=== PATIENT | female | born 1990 | race Caucasian/White ===

== ENCOUNTER 2020-06-13 10:21 | Emergency (ER) | payer OTHER, SELFPAY ==
--- NOTE | ~2020-06-13 | XR_ITS ---
EXAMINATION: XR CHEST CLINICAL INFORMATION: Fever COMPARISON: None TECHNIQUE: Frontal view of the chest was obtained. FINDINGS: No significant abnormality is noted involving the heart, lungs, mediastinum, bony thorax or soft tissues. XR/XR chest 1V IMPRESSION: Unremarkable examination.
[2020-06-13 10:35] VITALS: BP 140/63; PULSE 177; RESP 18; TEMP 38.4; O2SAT 100; BMI 17.1
[2020-06-13] MEDS: 0.9 % Sodium Chloride 1,000 ML 999 ML IV ×2 (11:12→13:03)
[2020-06-13] MEDS: Acetaminophen 325 MG TABLET 975 MG PO (11:12)
[2020-06-13 11:15] LABS: Basophils Percent Auto 0.3 % (0-2); Eosinophils Percent Auto 0.3 % (0-4); Hematocrit 36.3 % (37-47); Hemoglobin 11.4 g/dl (12.0-16.0); Imm Gran Abs Auto 0.01 X10*3/uL (0.00-0.03); Imm Gran Pct Auto 0.3 % (0.0-0.4); Lymphocytes Absolute Auto 0.2 X10*3/uL (1.2-4.9); Lymphocytes Percent Auto 4.5 % (20-40); MANUAL DIFF FLAG SCAN; Mean Corpuscular HGB Conc 31.4 g/dl (31.0-35.0); Mean Corpuscular Hemoglobin 27.5 pg (27.0-33.0); Mean Corpuscular Volume 87.7 fL (80-98); Mean Platelet Volume 10.9 fL (9.4-12.3); Monocytes Percent Auto 0.6 % (2-11); Neutrophils Absolute Auto 3.3 X10*3/uL (2.0-8.3); Platelet Count 164 X10*3/uL (160-400); Red Blood Count 4.14 X10*6/uL (4.20-5.50); Red Cell Distribution Width 12.8 % (11.0-16.0); SCAN SMEAR FLAG 1; White Blood Count 3.5 X10*3/uL (4.8-10.8)
[2020-06-13 11:34] LABS: SLIDE REVIEW VERIFIED
[2020-06-13 11:52] LABS: Influenza A PCR NEGATIVE (Negative); Influenza B PCR NEGATIVE (Negative); Resp Syncy Virus RNA Qual PCR NEGATIVE (Negative); SARS COV2 PCR INHOUSE NEGATIVE (Negative)
[2020-06-13 12:22] VITALS: BP 81/39; PULSE 124; RESP 18; TEMP 38.3; O2SAT 98
[2020-06-13 14:30] VITALS: BP 95/51; PULSE 115; RESP 16; TEMP 37.1; O2SAT 100
[2020-06-13 15:05] LABS: Glucose Urine UA NEG (NEG); Leukocyte Esterase Urine NEG (NEG); Nitrite Urine POS (NEG); PH 5.5 (5.0-8.0); UACC Culture Trigger YES; Urine Blood 2+ (NEG); Urine Ketones 15 MG/DL (NEG); Urine Protein NEG (NEG-TRACE)
[2020-06-13 15:06] LABS: Appearance Urine CLOUDY; Color Urine YELLOW
[2020-06-13 15:07] LABS: UPreg QC Valid YES; Urine Pregnancy NEGATIVE (NEGATIVE)
[2020-06-13 15:14] LABS: Bacteria Urine 3+ /LPF; Mucus Urine 1+ /LPF; Squamous Epithelial Cell Urine 1+ /LPF; UACC CULT YES
[2020-06-13 15:20] LABS: Alanine Aminotransferase 17 U/L (0-31); Albumin Level 3.3 g/dL (3.5-5.0); Alkaline Phosphatase 48 U/L (39-117); Anion Gap 9 (12-20); Aspartate Amino Transferase 22 U/L (5-31); Bilirubin Total 1.3 mg/dL (0.0-1.0); Blood Urea Nitrogen 11 mg/dL (9-16); Calcium 7.6 mg/dL (8.4-10.2); Carbon Dioxide 21 mmol/L (22-29); Chloride 111 mmol/L (96-108); Creatinine Clr Calc Pharmacy 97.3; Estimated Glomerular Filt Rate > 60; Glucose Random 140 mg/dL (60-115); Potassium 3.4 mmol/L (3.3-5.1); Sodium 138 mmol/L (135-145); Total Protein 5.7 g/dL (6.5-8.0)
--- NOTE | 2020-06-13 15:50 | ED_ITS ---
HPI - General Adult General Chief complaint: Fever Stated complaint: covid symptoms Time Seen by Provider: 06/13/20 10:45 Source: patient Mode of arrival: ambulatory Limitations: language barrier (Patient primarily English speaking spanish interpreter present for all interactions) History of Present Illness HPI narrative: This is otherwise healthy 29-year-old female presenting with complaint of states since yesterday has had a feeling of flu-like symptoms with runny nose/congestion and body aches this morning woke up with a fever and generalized feeling of unwell with myalgia type pains allover and her back as well. She denies any recent travel or sick contact. She denies any concern for . Denies any other GI symptoms. Onset (ago): day(s) (2) Severity: moderate Associated symptoms: fever/chills Related Data Previous Rx's Medication Instructions Recorded cefdinir 300 mg PO Q12H 7 Days #14 cap 06/13/20 ibuprofen 800 mg PO Q8H PRN #14 tab 06/13/20 Allergies Allergy/AdvReac Type Severity Reaction Status Date / Time Penicillins [PCN] Allergy Unknown UNKNOWN Unverified 01/14/20 19:33 Review of Systems Review of Systems: Constitutional: No Weight loss, No Fever, No Chills, No Night Sweats, No Fatigue, No Malaise ENT/Mouth: No Hearing loss, No Ear Pain, No Nasal Congestion, No Sinus Pain, No Hoarseness, No sore throat, No Rhinorrhea, No Swallowing Difficulty Eyes: No Eye Pain, No Swelling, No Redness, No Foreign Body, No Discharge Cardiovascular: No Chest Pain, No SOB, No Dyspnea on Exertion, No Orthopnea, No Edema, No Palpitations Respiratory: No Cough, No Sputum, No Wheezing, No Dyspnea Gastrointestinal: No Nausea, No Vomiting, No Diarrhea, No Constipation, No abdominal Pain, No Hematochezia, No Melena Genitourinary: No Dysuria, No Urinary Frequency, No Hematuria, No Urgency, No Flank Pain, No Urinary Flow Changes, No Hesitancy Musculoskeletal: No joint pain, No Myalgias, No Joint Swelling Skin: No Skin Lesions, No rash Neuro: No Weakness, No Numbness, No Paresthesias, No Loss of Consciousness, No Dizziness, No Headache Psych: No Social Issues Heme/Lymph: No Bruising, No Bleeding,No Lymphadenopathy Endocrine: No Polyuria, No Polydipsia, No Temperature Intolerance Yes all other systems are reviewed and are negative COUNT INCLUDES THE [facility] Social History Social History Smoking Status: Never smoker Use of substances other than those prescribed or required for medical reasons: No Advance Directives: No Advance Directives Information Provided: No Physical Exam Vital Signs: Vital Signs: Last Vital Signs Temp 98.7 F 06/13/20 14:30 Pulse 115 H 06/13/20 14:30 Resp 16 06/13/20 14:30 BP 95/51 L 06/13/20 14:30 Pulse Ox 100 06/13/20 14:30 Body Mass Index 17.1 Review Const: Other: Appears uncomfortable complaining of myalgias General: cooperative; No comfortable, acute distress or intoxicated appearing Nutritional Appearance: average body habitus Orientation/consciousness: patient oriented x3 HENMT: Head: Yes normal to inspection Ears: hearing grossly normal bilaterally Eyes: General: appearance normal, both eyes and all related structures Visual Silvestre: normal visual silvestre by confrontation Neck: Neck: Yes normal visual inspection, No positive Brudzinski's sign, No positive Kernig's sign and No tender Thyroid: Thyroid normal Chest: Chest palpation & inspection: normal inspection of the chest Resp: Effort & Inspection: normal respiratory effort Auscultation: clear to auscultation bilaterally Cardio: Jugular venous distension: no JVD Rate: tachycardic Heart sounds: S1 normal heart sound present and S2 normal heart sound present GI: Inspection: Yes normal to inspection Palpation (GI): Soft to palpation Percussion: Yes normal to percussion Auscultation: normal bowel sounds : General: Yes no CVA tenderness Back/Spine/Pelvis: Back: no CVA tenderness Skin: General skin exam: no rashes or lesions noted Neuro: General: patient oriented x3 Extrem: General: Yes normal to inspection Course Course Course Narrative: Feels much better after IV fluids and Tylenol temp has normalized. No longer tachycardic. UA positive nitrate now she endorses having slight dysuria yesterday. I will give her dose of ceftriaxone IM here and discharged home with Ceftin x7 days. Medical Decision Making MDM Narrative Medical decision making narrative: Otherwise healthy 29-year-old female presenting with complaint of upper respiratory symptoms with generalized body aches myalgias since yesterday with rhinorrhea and congestion upon arrival slightly tacky and febrile from arrival. Does have very mild cough. Denies any other symptoms. No shortness of breath or chest pain. Will check labs, COVID- 19, chest x-ray, UA and treat with IV fluids, Tylenol and re-evaluate. Differentials include but not limited to viral syndrome, COVID-19 infection with pneumonia. Lab Data Result diagrams: 06/13/20 11:08 06/13/20 14:46 Labs: Lab Results 06/13/20 06/13/20 06/13/20 Range/Units 11:08 11:08 14:46 WBC 3.5 L (4.8-10.8) X10*3/uL RBC 4.14 L (4.20-5.50) X10*6/uL Hgb 11.4 L (12.0-16.0) g/dl Hct 36.3 L (37-47) % MCV 87.7 (80-98) fL MCH 27.5 (27.0-33.0) pg MCHC 31.4 (31.0-35.0) g/dl RDW 12.8 (11.0-16.0) % Plt Count 164 (160-400) X10*3/uL MPV 10.9 (9.4-12.3) fL Immature Gran % (Auto) 0.3 (0.0-0.4) % Neut % (Auto) 94.0 H (45-73) % Lymph % (Auto) 4.5 L (20-40) % Gibson % (Auto) 0.6 L (2-11) % Eos % (Auto) 0.3 (0-4) % Baso % (Auto) 0.3 (0-2) % Lymph # (Auto) 0.2 L (1.2-4.9) X10*3/uL Gibson # (Auto) 0.0 L (0.1-1.2) X10*3/uL Eos # (Auto) 0.0 (0.0-0.4) X10*3/uL Baso # (Auto) 0.0 (0.0-0.2) X10*3/uL Abs Immat Gran (auto) 0.01 (0.00-0.03) X10*3/uL Absolute Neuts (auto) 3.3 (2.0-8.3) X10*3/uL Absolute Nucleated RBC 0.000 (0.0-0.012) X10*3/uL Nucleated RBC % (auto) 0.0 (0.0-0.2) /100WBC Smear Tech's Comments VERIFIED Sodium 138 (135-145) mmol/L Potassium 3.4 (3.3-5.1) mmol/L Chloride 111 H (96-108) mmol/L Carbon Dioxide 21 L (22-29) mmol/L Anion Gap 9 L (12-20) BUN 11 (9-16) mg/dL Creatinine 0.64 (0.5-1.4) mg/dL Estim Creat Clear Calc 97.3 Estimated GFR > 60 Random Glucose 140 H (60-115) mg/dL Calcium 7.6 L (8.4-10.2) mg/dL Total Bilirubin 1.3 H (0.0-1.0) mg/dL AST 22 (5-31) U/L ALT 17 (0-31) U/L Alkaline Phosphatase 48 (39-117) U/L Total Protein 5.7 L (6.5-8.0) g/dL Albumin 3.3 L (3.5-5.0) g/dL Urine Color Urine Appearance Urine pH (5.0-8.0) Ur Specific [place] (1.005-1.025) Urine Protein (NEG-TRACE) MG/DL Urine Glucose (UA) (NEG) MG/DL Urine Ketones (NEG) MG/DL Urine Blood (NEG) Urine Nitrite (NEG) Ur Leukocyte Esterase (NEG) Urine RBC (0) /HPF Urine WBC (0-4) /HPF Ur Squamous Epith Cells /LPF Urine Bacteria /LPF Urine Mucus /LPF Urine Test (NEGATIVE) Coronavirus (PCR) NEGATIVE (Negative) Influenza Type A (PCR) NEGATIVE (Negative) Influenza Type B (PCR) NEGATIVE (Negative) RSV RNA Qual (PCR) NEGATIVE (Negative) 06/13/20 Range/Units 14:46 WBC (4.8-10.8) X10*3/uL RBC (4.20-5.50) X10*6/uL Hgb (12.0-16.0) g/dl Hct (37-47) % MCV (80-98) fL MCH (27.0-33.0) pg MCHC (31.0-35.0) g/dl RDW (11.0-16.0) % Plt Count (160-400) X10*3/uL MPV (9.4-12.3) fL Immature Gran % (Auto) (0.0-0.4) % Neut % (Auto) (45-73) % Lymph % (Auto) (20-40) % Gibson % (Auto) (2-11) % Eos % (Auto) (0-4) % Baso % (Auto) (0-2) % Lymph # (Auto) (1.2-4.9) X10*3/uL Gibson # (Auto) (0.1-1.2) X10*3/uL Eos # (Auto) (0.0-0.4) X10*3/uL Baso # (Auto) (0.0-0.2) X10*3/uL Abs Immat Gran (auto) (0.00-0.03) X10*3/uL Absolute Neuts (auto) (2.0-8.3) X10*3/uL Absolute Nucleated RBC (0.0-0.012) X10*3/uL Nucleated RBC % (auto) (0.0-0.2) /100WBC Smear Tech's Comments Sodium (135-145) mmol/L Potassium (3.3-5.1) mmol/L Chloride (96-108) mmol/L Carbon Dioxide (22-29) mmol/L Anion Gap (12-20) BUN (9-16) mg/dL Creatinine (0.5-1.4) mg/dL Estim Creat Clear Calc Estimated GFR Random Glucose (60-115) mg/dL Calcium (8.4-10.2) mg/dL Total Bilirubin (0.0-1.0) mg/dL AST (5-31) U/L ALT (0-31) U/L Alkaline Phosphatase (39-117) U/L Total Protein (6.5-8.0) g/dL Albumin (3.5-5.0) g/dL Urine Color YELLOW Urine Appearance CLOUDY Urine pH 5.5 (5.0-8.0) Ur Specific [place] 1.020 (1.005-1.025) Urine Protein NEG (NEG-TRACE) MG/DL Urine Glucose (UA) NEG (NEG) MG/DL Urine Ketones 15 (NEG) MG/DL Urine Blood 2+ H (NEG) Urine Nitrite POS H (NEG) Ur Leukocyte Esterase NEG (NEG) Urine RBC 15-29 H (0) /HPF Urine WBC 1-4 (0-4) /HPF Ur Squamous Epith Cells 1+ /LPF Urine Bacteria 3+ /LPF Urine Mucus 1+ /LPF Urine Test NEGATIVE (NEGATIVE) Coronavirus (PCR) (Negative) Influenza Type A (PCR) (Negative) Influenza Type B (PCR) (Negative) RSV RNA Qual (PCR) (Negative) Discharge Plan Discharge Clinical Impression: Viral infection, Urinary tract infection Patient Disposition: Home, Self-Care Instructions: Upper Respiratory Infection (ED), Urinary Urgency and Frequency (DC) Additional Instructions: Drink plenty of fluids Take medication prescribed Return if any concerns or worsening symptoms Follow up with her primary care doctor in 1 week Thank you Prescriptions: New cefdinir 300 mg capsule 300 mg PO Q12H 7 Days Qty: 14 RF: 0 ibuprofen 800 mg tablet 800 mg PO Q8H PRN (Reason: pain) Qty: 14 RF: 0 Referrals: Po,Briana Man MD [Primary Care Provider] -
[2020-06-13] MEDS: cefTRIAXone sodium 1 GM in 0.9 % Sodium Chloride 50 ML IV (16:34)
== END 2020-06-13 17:48 | disposition home or self-care (01) ==
PROVIDERS: Nurse Practitioner Primary Care; Emergency Provider Internal Medicine; PCP Internal Medicine
DX: B34.9 Viral infection, unspecified (principal); R50.9 Fever, unspecified; N39.0 Urinary tract infection, site not specified; Z20.822 Contact with and (suspected) exposure to COVID-19; Z79.899 Other long term (current) drug therapy
CPT/HCPCS: 0241U; 36415; 71045; 80053; 81001; 81025; 85025; 87086; 87088; 87186; 96361; 96365; 99284; J0696

== ENCOUNTER 2020-08-10 11:40 | Outpatient (REF) | payer MEDICAID, SELFPAY ==
[2020-08-10 12:36] LABS: COVID-19 Test Negative (Negative); IDNOW Serial# 55D5AD1C
== END 2020-08-10 11:41 | disposition home or self-care (01) ==
LOC: HO.LAB 11:40
PROVIDERS: Visit Provider Internal Medicine
DX: Z20.822 Contact with and (suspected) exposure to COVID-19 (principal)
CPT/HCPCS: 36415; 87635; C9803

== ENCOUNTER 2020-08-17 14:01 | Outpatient (REF) | payer MEDICAID, SELFPAY ==
[2020-08-17 14:53] LABS: COVID-19 Test Negative (Negative)
== END 2020-08-17 14:02 | disposition home or self-care (01) ==
LOC: HO.LAB 14:01
PROVIDERS: Visit Provider Internal Medicine
DX: Z20.822 Contact with and (suspected) exposure to COVID-19 (principal)
CPT/HCPCS: 36415; 87635; C9803

== ENCOUNTER 2020-08-22 09:28 | Outpatient (REF) | payer MEDICAID, SELFPAY ==
[2020-08-22 12:07] LABS: Hematocrit 39.9 % (37-47); Hemoglobin 12.4 g/dl (12.0-16.0); Mean Corpuscular HGB Conc 31.1 g/dl (31.0-35.0); Mean Corpuscular Hemoglobin 27.7 pg (27.0-33.0); Mean Corpuscular Volume 89.3 fL (80-98); Mean Platelet Volume 11.1 fL (9.4-12.3); Platelet Count 239 X10*3/uL (160-400); Red Blood Count 4.47 X10*6/uL (4.20-5.50); Red Cell Distribution Width 12.8 % (11.0-16.0); White Blood Count 3.7 X10*3/uL (4.8-10.8)
[2020-08-22 12:55] LABS: Thyroid Stimulating Hormone 1.39 uIU/mL (0.32-4.0)
[2020-08-22 15:03] LABS: CT PCR NOT DETECTED (Not Detect.); NG PCR NOT DETECTED (Not Detect.)
[2020-08-23 08:54] LABS: BV Int Neg Control Negative (Negative); BV Int Pos Control Positive (Positive)
== END 2020-08-22 09:29 | disposition home or self-care (01) ==
LOC: HO.LAB 09:28
PROVIDERS: PCP Internal Medicine; Visit Provider Advanced Practice Midwife
DX: Z11.3 Encounter for screening for infections with a predominantly sexual mode of transmission (principal); R10.2 Pelvic and perineal pain; N92.0 Excessive and frequent menstruation with regular cycle; N92.1 Excessive and frequent menstruation with irregular cycle; Z20.2 Contact with and (suspected) exposure to infections with a predominantly sexual mode of transmission
CPT/HCPCS: 36415; 81025; 84443; 85027; 87480; 87491; 87510; 87591; 87660; 88142; 99202

== ENCOUNTER 2020-08-30 14:18 | Outpatient (REF) | payer MEDICAID, SELFPAY ==
--- NOTE | ~2020-08-30 | US_ITS ---
EXAMINATION: US PELVIS AND TRANSVAGINAL CLINICAL INFORMATION: Excessive and frequent menstruation with regular cycles. Previous . COMPARISON: None. TECHNIQUE: Transabdominal and transvaginal imaging of pelvis is performed. FINDINGS: The uterus is anteverted and retroflexed measuring 10.9 cm in length, 3.9 cm in AP and 5.3 cm in transverse dimension. The uterus is homogeneous in echotexture. The endometrial stripe measures 1.6 cm. The right ovary measures 3.5 x 3.0 x 2.5 cm and volume 13.7 mL. There is anechoic cyst measuring 1.9 x 2.5 x 2.1 cm and free fluid in the right adnexa. The left ovary measures 2.8 x 1.9 x 1.6 cm and volume 4.5 mL. There is no free fluid in the cul-de-sac. US/US pelvic and transvaginal IMPRESSION: Small anechoic 2.5 cm cyst right ovary, question corpus luteal cyst. There is minimal free fluid in the right adnexa, likely from ruptured cyst. The left ovary and uterus are unremarkable.
== END 2020-08-30 14:19 | disposition home or self-care (01) ==
LOC: HO.US 14:18
PROVIDERS: PCP Internal Medicine; Visit Provider Advanced Practice Midwife
DX: N92.0 Excessive and frequent menstruation with regular cycle (principal)
CPT/HCPCS: 76830; 76856

== ENCOUNTER 2020-09-12 10:44 | Outpatient (REF) | payer MEDICAID, SELFPAY ==
--- NOTE | ~2020-09-12 | US_ITS ---
EXAMINATION: US DIAGNOSTIC ULTRASOUND BREAST, RIGHT CLINICAL INFORMATION: 29-year-old with intermittent olive-sized palpable area noted by patient approximately one month ago mid upper right breast. No discharge. No known family history breast cancer. No prior breast imaging. COMPARISON: None. TECHNIQUE: Ultrasound right breast is targeted to the area of clinical concern upper breast. Grayscale imaging is performed without and with harmonics. FINDINGS: There is no focal suspicious finding. There is no cystic or solid mass, architectural abnormality, duct ectasia, or edema in the soft tissue planes. Results are discussed with the patient at time of visit. US/US breast RT limited IMPRESSION: Normal study. No ultrasound correlate for patient's symptoms. ASSESSMENT: BI-RADS 1: Negative RECOMMENDATION: Patient should be managed based on the clinical impression. If clinically indicated, further evaluation may be considered with surgical consult. Decision to proceed with biopsy should be based on clinical grounds and degree of clinical concern.
== END 2020-09-12 10:45 | disposition home or self-care (01) ==
LOC: HO.MAMMO 10:44
PROVIDERS: PCP Family Medicine; Visit Provider Family Medicine
DX: N63.15 Unspecified lump in the right breast, overlapping quadrants (principal)
CPT/HCPCS: 76642

== ENCOUNTER → 2020-09-13 11:27 | Outpatient (BNVA) | payer MEDICAID, SELFPAY | PROVIDERS: Visit Provider Advanced Practice Midwife ==

== ENCOUNTER 2021-01-09 08:13 | Emergency (ER) | payer MEDICAID, SELFPAY ==
[2021-01-09 09:12] VITALS: BP 92/60; PULSE 95; RESP 18; TEMP 37; O2SAT 100; BMI 19.7
--- NOTE | 2021-01-09 09:46 | ED.URI ---
HPI - URI/Sore Throat General Chief Complaint: Upper Respiratory Symptoms Stated Complaint: SORE THROAT Time Seen by Provider: 01/09/21 09:23 Source: patient Mode of arrival: ambulatory Limitations: language barrier ([place]-speaking) History of Present Illness HPI Narrative: 30-year-old female presenting to the ED with complaints of subjective fevers, chills, body aches, fatigue, malaise, sore throat, nasal congestion/rhinorrhea and lower back pain since last night worse today. Denies recent travel or sick contacts although she works doing [employer]. Denies any measured fevers, dizziness, headaches, neck pain/stiffness, chest pain or shortness of breath, cough, nausea/vomiting/abdominal pain/diarrhea/constipation, dysuria, hematuria, black or bloody stools, abnormal vaginal discharge or any weakness or any other symptoms complaints or concerns at this time. MD elicited complaint: fever, sore throat, rhinorrhea and nasal congestion Onset (ago): day(s) (Since last night worse this morning) Consistency: constant Severity: moderate Description of mucous: clear, watery and yellow Able to tolerate fluids by mouth: Yes Exacerbating factors: swallowing Relieving factors: nothing Associated symptoms: fever, chills, myalgias, rhinorrhea, nasal congestion, sore throat and other (And lower back pain) Treatments prior to arrival: acetaminophen and ibuprofen Related Data Previous Rx's Medication Instructions Recorded cefdinir 300 mg capsule 300 mg PO Q12H 7 Days #14 cap 06/13/20 ibuprofen 800 mg tablet 800 mg PO Q8H PRN #14 tab 06/13/20 norethindrone (contraceptive) 0.35 0.35 mg PO DAILY #28 tab 09/13/20 mg tablet (Lisette) acetaminophen 500 mg tablet 1,000 mg PO QID PRN #14 tab 01/09/21 (Tylenol Extra Strength) azithromycin 250 mg tablet See Rx Instructions .ROUTE 01/09/21 .COMPLEX #6 tab dexamethasone 6 mg tablet 12 mg PO DAILY #2 tab 01/09/21 (Decadron) ibuprofen 800 mg tablet 800 mg PO Q8H PRN #14 tab 01/09/21 Allergies Allergy/AdvReac Type Severity Reaction Status Date / Time Penicillins [PCN] Allergy Unknown UNKNOWN Verified 09/13/20 11:27 Review of Systems Review of Systems: Constitutional : Positive subjective fevers/fatigue/chills/malaise ENT/Mouth : Positive sore throat/rhinorrhea/nasal congestion Eyes: No Discharge Cardiovascular : No Chest Pain, No SOB Respiratory : No Cough, No Sputum, No Wheezing, No Smoke Exposure, No Dyspnea Gastrointestinal : No Nausea, No Vomiting, No Diarrhea Genitourinary : No irregular bleeding, No Dysuria, No Urinary Frequency, No Hematuria, No Urinary Incontinence, No Urgency, No Flank Pain, Musculoskeletal : Positive myalgias/lower back pain Skin : No rash Neuro : No Headache Yes all other systems are reviewed and are negative [facility] Past Medical History Attestation statement: The following information was validated with the patient. Medical History Corpus luteum cyst Migraine with aura Surgical History Hx of section Hx of tubal ligation Social History Social History Alcohol intake: never Advance Directives: Yes Advance Directives Information Provided: No Advance Directives on File: No Patient : No Physical Exam Vital Signs: Vital Signs: Last Vital Signs Temp 98.6 F 01/09/21 09:12 Pulse 95 01/09/21 09:12 Resp 18 01/09/21 09:12 BP 92/60 01/09/21 09:12 Pulse Ox 100 01/09/21 09:12 Body Mass Index 19.7 vital signs have been reviewed as normal and appeared to be correct. Blood pressure normal. Heart rate normal. Respiration rate normal. Temperature normal. Oxygen saturation normal. Appearance: Alert. Oriented X3. No acute distress. Head: Normal external exam. Normocephalic. Atraumatic. Eyes: PERRLA. EOMI. Conjunctiva and sclera normal. Eyelids normal. ENT: EAC normal. TM's Normal. Posterior pharynx erythematous although no exudate is noted. Uvula midline. Moist mucous membranes. No trismus noted. No drooling noted. No muffled voice noted. Neck: Normal inspection. Neck supple. FROM. No adenopathy. Thyroid Normal. No meningeal signs. No neck mass noted. CVS: Normal heart rate and rhythm. Heart sound normal. Pulses normal throughout. No murmurs/rales/gallops. Respiratory: No respiratory distress. Painless inspiration. Breath sounds normal. No wheezes/rales/rhonchi noted. Chest nontender. No accessory muscle usage noted or decreased air movement noted. Abdomen: Soft and nontender. Bowel sounds normal in all 4 quadrants. No distention noted. No organomegaly noted. No visible injury noted. Back: No CVA tenderness. Full range of motion noted. No rashes/lesion/induration/fluctuance or signs of infection noted. Skin: Skin warm and dry. Normal skin color. Normal skin turgor. No rashes/lesions/lacerations noted. Extremities: Extremities exhibit normal range of motion. Extremities nontender. Neuro: Oriented X 3. No motor deficit. No sensory deficit. Reflexes normal. Normal steady gait. No focal neuro deficits noted. Vascular: + radial pulses Normal cap refill. No cyanosis noted to upper extremity nails Course Course Course Narrative: 30-year-old female with URI symptoms. No COVID exposure that she is aware of. No recent travel. Although she does work for [employer]. COVID/RSV/flu and rapid strep obtained at this time. Will DC home with antibiotics and call her within 2-4 hours with positive or negative results for COVID/RSV/flu along instructions to self isolate and a work note for 7-10 days and to return if any new or worsening symptoms follow-up with primary care provider. Patient understands agrees with this plan. MDM - URI/Sore Throat Medical Records Attestation: I reviewed the patient's medical records. Lab Data Attestation: I reviewed the patient's lab results. Discharge Plan Discharge Clinical Impression: Upper respiratory infection Patient Disposition: Home, Self-Care Instructions: Upper Respiratory Infection (ED) Additional Instructions: Bas?ndonos en cheryl s?ntomas e historial, hemos enviado un COVID-19. Aunque tarango RESULTADO EST? PENDIENTE en eleanor momento. Los RESULTADOS deben regresar dentro de 2-4 horas. En eleanor momento se le contactar? con resultados NEGATIVOS O POSITIVOS. -Por favor, espere hasta que nos pongamos en contacto con usted para obtener cheryl resultados. En eleanor momento estar? mor para el flower. Por favor, planifique la cuarentena por hasta 14 d?as. No te expongas a los dem?s. Es posible que no vaya a trabajar. Si la prueba da negativo, puede volver a las actividades siempre y cuando ya no tenga germaine?n s?ntoma gino al menos 3 d?as. Contin?e siguiendo las instrucciones fr?as y l?vese las abhishek con frecuencia. Puede sonu Tylenol cl se indica en el frasco para el dolor o la fiebre. Paciente visto en el departamento de emergencias el 01/09/2021 y debe excusarse del trabajo hasta que los resultados negativos de la prueba Y hasta 72 horas sin germaine?n s?ntoma Y hayan pasado al menos 10 d?as desde que aparecieron los s?ntomas por primera vez o desde la ?ltima exposici?n al paciente COVID-19 positivo Based on your symptoms and history we have sent a COVID-19. Although your RESULT IS PENDING at this time. RESULTS should return within 2-4 hours. At this time you will be contacted with either NEGATIVE OR POSITIVE results. -Please wait until we contact you for your results. At this time you will be okay for discharge. Please plan for self quarantine for up to 14 days. Do not expose yourself to others. You may not go to work. If testing does come back negative you may return to activities as long as you are no longer having any symptoms for at least 3 days. Please continue to follow cold instructions and wash your hands frequently. You may take Tylenol as directed on the bottle for pain or fever. Patient seen in the emergency department on 01/09/2021 and should be excused from work until negative test results AND until 72 hours without any symptoms AND at least 10 days have passed since symptoms first appeared or since last exposure to COVID-19 positive patient CDC Guidelines for home isolation: - Stay away from others - WEAR A MASK if you are sick AND STAY HOME - Cover your mouth and nose with a tissue when you cough or sneeze. Dispose of tissues in a lined trash can and wash your hands immediately with soap and water for at least 20 seconds. If soap and water are not available, clean hands with alcohol-based hand doctor of naturopathic medicine that contains at least 60% alcohol. - Clean your hands often with soap and water for at least 20 seconds - Avoid touching your eyes, nose and mouth with unwashed hands - Do not share dishes, drinking glasses, cups, eating utensils, towels, or bedding with other people in your home. After using these items, wash them thoroughly with soap and water or put in the chief financial officer. - Clean high-touch surfaces in your isolation area ( sick room and bathroom) every day; let a caregiver clean and disinfect high-touch surfaces in other areas of the home. Clean the area or item with soap and water or another detergent if it is dirty. Then, use a household disinfectant. - Limit contact with pets and animals: If you must care for a pet, wash your hands before and after interacting with them). Prescriptions: New azithromycin 250 mg tablet See Rx Instructions .ROUTE .COMPLEX Qty: 6 RF: 0 ibuprofen 800 mg tablet 800 mg PO Q8H PRN (Reason: pain) Qty: 14 RF: 0 acetaminophen [Tylenol Extra Strength] 500 mg tablet 1,000 mg PO QID PRN (Reason: fever or pain) Qty: 14 RF: 0 dexamethasone [Decadron] 6 mg tablet 12 mg PO DAILY Qty: 2 RF: 0 No Action cefdinir 300 mg capsule 300 mg PO Q12H 7 Days Qty: 14 RF: 0 ibuprofen 800 mg tablet 800 mg PO Q8H PRN (Reason: pain) Qty: 14 RF: 0 norethindrone (contraceptive) [Lisette] 0.35 mg tablet 0.35 mg PO DAILY Qty: 28 RF: 4 Referrals: Usha Walls MD [Primary Care Provider] - 2 days Stand Alone Forms: Work/School Release Print Language: [place]
--- NOTE | 2021-01-09 10:02 | PC.NURSE ---
PT AWAKE, ALERT AND ORIENTED X 3. SKIN WARM AND DRY. RESP UNLABORED. AIRWAY PATENT, MANAGING SECRETIONS. NO COUGH NOTED. NEUROS INTACT. SEEN AND EVALUATED BY STACIE SYLVESTER. PLAN IS FOR SWAB AND DC HOME. WILL CALL WITH RESULTS. PT AGREEABLE TO PLAN.
[2021-01-09 10:19] LABS: IDNOW Serial# 9DD0AD1C; Strep A Nucleic Acid Negative (Negative)
[2021-01-09 10:50] LABS: Influenza A PCR NEGATIVE (Negative); Influenza B PCR NEGATIVE (Negative); Resp Syncy Virus RNA Qual PCR NEGATIVE (Negative); SARS COV2 PCR INHOUSE NEGATIVE (Negative)
[2021-01-09 11:45] LABS: Adenovirus PCR Not Detected (Not Detect.); Bordetella parapertussis PCR Not Detected (Not Detect.); Bordetella pertussis PCR Not Detected (Not Detect.); Chlamydia pneumoniae PCR Not Detected (Not Detect.); Coronavirus 229E PCR Not Detected (Not Detect.); Coronavirus HKU1 PCR Not Detected (Not Detect.); Coronavirus NL63 PCR Not Detected (Not Detect.); Coronavirus OC43 PCR Not Detected (Not Detect.); Human metapneumovirus PCR Not Detected (Not Detect.); Influenza A PCR Not Detected (Not Detect.); Influenza B PCR Not Detected (Not Detect.); Mycoplasma pneumoniae PCR Not Detected (Not Detect.); Parainfluenza 1 PCR Not Detected (Not Detect.); Parainfluenza 2 PCR Not Detected (Not Detect.); Parainfluenza 3 PCR Not Detected (Not Detect.); Parainfluenza 4 PCR Not Detected (Not Detect.); RSV PCR Not Detected (Not Detect.); Rhino/Enterovirus PCR Not Detected (Not Detect.); SARS-CoV-2 PCR Not Detected (Not Detect.)
== END 2021-01-09 10:04 | disposition home or self-care (01) ==
PROVIDERS: Physician Assistant Medical; Emergency Provider Emergency Medicine; PCP Internal Medicine
DX: J06.9 Acute upper respiratory infection, unspecified (principal); R50.9 Fever, unspecified; M79.10 Myalgia, unspecified site; M54.5 Low back pain; Z20.822 Contact with and (suspected) exposure to COVID-19; Z79.899 Other long term (current) drug therapy
CPT/HCPCS: 0241U; 36415; 87633; 87651; 99283

== ENCOUNTER 2021-04-20 08:06 | Outpatient (REF) | payer MEDICAID, SELFPAY | END 2021-04-20 08:07 | disposition home or self-care (01) | LOC: HO.LAB 08:06 | PROVIDERS: Visit Provider Internal Medicine | DX: Z13.89 Encounter for screening for other disorder (principal) ==

== ENCOUNTER 2021-04-20 08:07 | Outpatient (REF) | payer MEDICAID, SELFPAY ==
[2021-04-20 08:52] LABS: COVID-19 Test Positive (Negative); IDNOW Serial# 16C4AD1C
== END 2021-04-20 08:08 | disposition home or self-care (01) ==
LOC: HO.LAB 08:07
PROVIDERS: Visit Provider Internal Medicine
DX: Z20.822 Contact with and (suspected) exposure to COVID-19 (principal)
CPT/HCPCS: 36415; 87635; C9803

== ENCOUNTER 2021-04-28 08:21 | Outpatient (REF) | payer MEDICAID, SELFPAY ==
[2021-04-28 09:34] LABS: Binax Now Covid-19 Ag Positive (Negative)
[2021-04-28 09:35] LABS: Binax Internal Control QC Valid; Binax Lot number: 9864
== END 2021-04-28 08:22 | disposition home or self-care (01) ==
LOC: HO.LAB 08:21
PROVIDERS: Visit Provider Internal Medicine
DX: Z20.822 Contact with and (suspected) exposure to COVID-19 (principal)
CPT/HCPCS: 36415; C9803

== ENCOUNTER 2022-03-23 15:59 | Emergency (ER) | payer MEDICAID, SELFPAY ==
[2022-03-23 16:28] VITALS: BP 124/84; PULSE 88; RESP 18; TEMP 36.7; O2SAT 100; BMI 21.4
--- NOTE | 2022-03-23 16:28 | ED.URI ---
HPI - URI/Sore Throat General Chief Complaint: Upper Respiratory Symptoms Stated Complaint: fever,cough, watery eyes Time Seen by Provider: 03/23/22 16:37 Source: patient Mode of arrival: ambulatory Limitations: no limitations History of Present Illness HPI Narrative: Patient is a 31-year-old female presents to emergency department for evaluation of cough, headache, chills, tactile fevers. Symptom onset yesterday night. Took tylenol without improvement in symptoms. Took APAP last at 11:30. Significant other has tested positive for Influenza A. Related Data Previous Rx's Medication Instructions Recorded cefdinir 300 mg capsule 300 mg PO Q12H 7 days #14 caps 06/13/20 ibuprofen 800 mg tablet 800 mg PO Q8H PRN pain #14 tabs 06/13/20 norethindrone (contraceptive) 0.35 0.35 mg PO DAILY #28 tabs 09/13/20 mg tablet (Lisette) acetaminophen 500 mg tablet 1,000 mg PO QID PRN fever or pain 01/09/21 (Tylenol Extra Strength) #14 tabs azithromycin 250 mg tablet See Rx Instructions PO .COMPLEX #6 01/09/21 tabs dexamethasone 6 mg tablet 12 mg PO DAILY #2 tabs 01/09/21 (Decadron) ibuprofen 800 mg tablet 800 mg PO Q8H PRN pain #14 tabs 01/09/21 oseltamivir 75 mg capsule (Tamiflu) 75 mg PO BID 5 days #10 caps 03/23/22 Allergies Allergy/AdvReac Type Severity Reaction Status Date / Time Penicillins [PCN] Allergy Severe Anaphylaxis Unverified 03/23/22 16:28 Review of Systems Review of Systems: Constitutional: Positive tactile fever. Positive chills. No weakness. Positive fatigue. ENT/ Mouth: No Ear Pain, positive Nasal Congestion, no sore throat, positive Rhinorrhea, No Swallowing Difficulty Skin: No rash or itching. Cardiovascular: No chest pain. No palpitations. Respiratory: No shortness of breath. Positive cough. No sputum production. Gastrointestinal: No nausea. No vomiting. No diarrhea. No abdominal pain. Genitourinary: No burning micturition. No urinary frequency. Neurologic: No headache. No dizziness. No syncope. No numbness or tingling in the extremities. Musculoskeletal: No muscle pain. No back pain. No joint pain or stiffness. Yes all other systems are reviewed and are negative [facility] Past Medical History Attestation statement: The following information was validated with the patient. Source: old records reviewed Medical History Corpus luteum cyst Migraine with aura Surgical History Hx of section Hx of tubal ligation Social History Social History Alcohol intake: never Advance Directives: No Advance Directives Information Provided: No Physical Exam Vital Signs: Vital Signs: Last Vital Signs Temp 98.1 F 03/23/22 16:28 Pulse 88 03/23/22 16:28 Resp 18 03/23/22 16:28 BP 124/84 03/23/22 16:28 Pulse Ox 100 03/23/22 16:28 O2 Del Method 03/23/22 16:28 BMI result Body Mass Index 21.4 Vital signs have been reviewed as normal and appeared to be correct. Blood pressure normal.? Heart rate normal.? Respiration rate normal. Temperature normal.? Oxygen saturation normal. Appearance: Alert.?Oriented to person, place and time. No acute distress.?Normal affect. Eyes: Pupils equal, round and reactive to light.? ENT: TM normal bilaterally. Pharynx normal.?? Neck: Normal inspection.? Neck supple.??No cervical adenopathy CVS: Heart sounds normal. Normal heart rate and rhythm.? Pulses normal.?? Respiratory: No respiratory distress.? Lung sounds clear to auscultation bilaterally?? Abdomen: Soft and non-tender. Normoactive bowel sounds. Skin: Skin warm and dry.? Normal skin color.? ? Extremities: No lower extremity edema.? Neuro: Moves all extremities spontaneously. Sensation intact bilaterally. No motor deficits. Ambulates with normal steady gait. Course Course Course Narrative: Patient is a 31-year-old female with no significant past medical history, presenting for evaluation of upper respiratory symptoms. COVID-19 testing negative. Influenza A testing positive. RSV testing negative. At this time history and physical exam not consistent with ACS/PE/pneumonia. Well-appearing, nontoxic, afebrile, no tachycardia or tachypnea/hypoxia. Speaking clear full sentences, ambulatory with steady gait. Discussed conservative treatment including rest, hydration, Tylenol/ibuprofen as needed for fever and body aches, saline nasal spray, humidifier, upny-qkh-rliljzs cold medication. Advised to follow-up with primary care provider as needed, discussed reasons to return back to the emergency department. All questions were answered. Patient discharged home in stable condition. Offered Tamiflu and accepted. MDM - URI/Sore Throat Medical Records Attestation: I reviewed the patient's medical records. Lab Data Attestation: I reviewed the patient's lab results. Labs: Lab Results 03/23/22 Range/Units 16:31 Influenza Type A (PCR) POSITIVE A (Negative) Influenza Type B (PCR) NEGATIVE (Negative) RSV RNA Qual (PCR) NEGATIVE (Negative) SARS-CoV-2 RNA (RT-PCR) NEGATIVE (Negative) Discharge Plan Discharge Clinical Impression: Influenza Patient Disposition: Home, Self-Care Instructions: Influenza (ED), Upper Respiratory Infection (ED) Additional Instructions: Be sure to rest, stay well hydrated drinking plenty of fluids, eat small frequent meals. Tylenol/ibuprofen can be used as needed for fever/pain. Kqbq-szw-umgcjko cold medications may be helpful as well for symptoms. Saline nasal spray, humidifier may be helpful for nasal congestion. You may return to the emergency department with any new or worsening symptoms or concerns. Follow-up with your primary care provider as needed. Prescriptions: New oseltamivir [Tamiflu] 75 mg capsule 75 mg PO BID 5 Days Qty: 10 0RF No Action azithromycin 250 mg tablet See Rx Instructions .ROUTE .COMPLEX Qty: 6 0RF Rx Instructions: take 500 mg today (day 1), then 250 mg for 4 days (days 2-5) ibuprofen 800 mg tablet 800 mg PO Q8H PRN (Reason: pain) Qty: 14 0RF acetaminophen [Tylenol Extra Strength] 500 mg tablet 1,000 mg PO QID PRN (Reason: fever or pain) Qty: 14 0RF dexamethasone [Decadron] 6 mg tablet 12 mg PO DAILY Qty: 2 0RF cefdinir 300 mg capsule 300 mg PO Q12H 7 Days Qty: 14 0RF ibuprofen 800 mg tablet 800 mg PO Q8H PRN (Reason: pain) Qty: 14 0RF norethindrone (contraceptive) [Lisette] 0.35 mg tablet 0.35 mg PO DAILY Qty: 28 4RF Referrals: Usha Walls MD [Primary Care Provider] - Interventions: ED Discharge Assessment Last Done: 03/23/22 16:59 Discharge Date/Time: 03/23/22 17:00
[2022-03-23 17:21] LABS: Influenza A PCR POSITIVE (Negative); Influenza B PCR NEGATIVE (Negative); Resp Syncy Virus RNA Qual PCR NEGATIVE (Negative); SARS COV2 PCR INHOUSE NEGATIVE (Negative)
== END 2022-03-23 17:00 | disposition home or self-care (01) ==
PROVIDERS: Nurse Practitioner Family; Emergency Provider Emergency Medicine; PCP Internal Medicine
DX: J11.1 Influenza due to unidentified influenza virus with other respiratory manifestations (principal); Z20.822 Contact with and (suspected) exposure to COVID-19
CPT/HCPCS: 0241U; 99282; 99283

== ENCOUNTER 2022-08-22 13:05 | Outpatient (REF) | payer MEDICAID, SELFPAY ==
--- NOTE | 2022-08-22 10:00 | EMG_ITS ---
Please see scanned EMG / Nerve Conduction Report. MTDD
== END 2022-08-22 13:06 | disposition home or self-care (01) ==
LOC: HO.NEURO 13:05
PROVIDERS: PCP Internal Medicine; Visit Provider Registered Nurse
DX: R20.0 Anesthesia of skin (principal); R20.2 Paresthesia of skin
CPT/HCPCS: 95885; 95913

== ENCOUNTER 2023-01-23 18:30 | Outpatient (REF) | payer MEDICAID, SELFPAY ==
[2023-01-23 19:16] LABS: Influenza A PCR NEGATIVE (Negative); Influenza B PCR NEGATIVE (Negative); Resp Syncy Virus RNA Qual PCR NEGATIVE (Negative); SARS COV2 PCR INHOUSE NEGATIVE (Negative)
== END 2023-01-23 18:31 | disposition home or self-care (01) ==
LOC: HO.HHCLNP 18:30
PROVIDERS: Visit Provider Emergency Medicine
DX: Z20.822 Contact with and (suspected) exposure to COVID-19 (principal); R68.89 Other general symptoms and signs
CPT/HCPCS: 0241U; 87070

== ENCOUNTER 2023-01-28 18:12 | Outpatient (REF) | payer MEDICAID, SELFPAY ==
[2023-01-28 19:10] LABS: Influenza A PCR NEGATIVE (Negative); Influenza B PCR NEGATIVE (Negative); Resp Syncy Virus RNA Qual PCR NEGATIVE (Negative); SARS COV2 PCR INHOUSE NEGATIVE (Negative)
== END 2023-01-28 18:13 | disposition home or self-care (01) ==
LOC: HO.HHCLNP 18:12
PROVIDERS: Visit Provider Emergency Medicine
DX: Z20.822 Contact with and (suspected) exposure to COVID-19 (principal); J06.9 Acute upper respiratory infection, unspecified
CPT/HCPCS: 0241U

== ENCOUNTER 2023-07-31 18:33 | Outpatient (REF) | payer MEDICAID, SELFPAY ==
[2023-08-05 20:48] LABS: HPV mRNA E6/E7 rflx Not Detected (Not Detected)
[2023-08-05 22:33] LABS: C. trachomatis RNA TMA NOT DETECTED (NOT DETECTED); N. gonorrhoeae RNA TMA NOT DETECTED (NOT DETECTED); Trichomonas (NAAT) NOT DETECTED (NOT DETECTED)
== END 2023-07-31 18:34 | disposition home or self-care (01) ==
LOC: HO.HHCLNP 18:33
PROVIDERS: Visit Provider Internal Medicine
DX: Z12.4 Encounter for screening for malignant neoplasm of cervix (principal); Z11.51 Encounter for screening for human papillomavirus (HPV)
CPT/HCPCS: 36415; 87491; 87591; 87624; 87661; 88142

== ENCOUNTER 2023-10-28 14:45 | Outpatient (REF) | payer MEDICAID, SELFPAY ==
[2023-10-28 16:10] LABS: MANUAL DIFF FLAG NO
[2023-10-28 16:15] LABS: Basophils Percent Auto 0.7 % (0-2); Eosinophils Absolute Auto 0.2 X10*3/uL (0.0-0.4); Eosinophils Percent Auto 3.8 % (0-4); Hematocrit 39.5 % (37.0-47.0); Hemoglobin 12.7 g/dl (12.0-16.0); Imm Gran Abs Auto 0.01 X10*3/uL (0.00-0.03); Imm Gran Pct Auto 0.2 % (0.0-0.4); Lymphocytes Absolute Auto 1.5 X10*3/uL (1.2-4.9); Lymphocytes Percent Auto 33.5 % (20-40); Mean Corpuscular HGB Conc 32.2 g/dl (31.0-35.0); Mean Corpuscular Hemoglobin 28.2 pg (27.0-33.0); Mean Corpuscular Volume 87.8 fL (80.0-98.0); Mean Platelet Volume 10.7 fL (9.4-12.3); Monocytes Absolute Auto 0.2 X10*3/uL (0.1-1.2); Monocytes Percent Auto 5.1 % (2-11); Neutrophils Absolute Auto 2.6 x10*3/uL (2.0-8.3); Neutrophils Percent Auto 56.7 % (45-73); Platelet Count 298 X10*3/uL (160-400); Red Cell Distribution Width 12.4 % (11.0-16.0); White Blood Count 4.5 X10*3/uL (4.8-10.8)
[2023-10-28 16:23] LABS: Estimated Average Glucose 111 mg/dL; Hemoglobin A1C 121.0898 umol/L; Hemoglobin A1c % 5.5 % (<6.0)
[2023-10-28 16:41] LABS: Alanine Aminotransferase 10 U/L (0-31); Albumin Level 4.4 g/dL (3.5-5.0); Alkaline Phosphatase 59 U/L (39-117); Anion Gap 11 (12-20); Aspartate Amino Transferase 14 U/L (5-31); Bilirubin Total 0.7 mg/dL (0.0-1.0); Blood Urea Nitrogen 13 mg/dL (9-16); Calcium 9.3 mg/dL (8.4-10.2); Carbon Dioxide 26 mmol/L (22-29); Chloride 107 mmol/L (96-108); Estimated Glomerular Filt Rate > 60; Glucose Random 104 mg/dL (60-115); Potassium 3.9 mmol/L (3.3-5.1); Sodium 140 mmol/L (135-145); Total Protein 7.8 g/dL (6.5-8.0)
[2023-10-28 16:57] LABS: TSH reflex Free T4 1.46 uIU/mL (0.32-4.0); Vitamin D 25-OH Total 37.8 ng/mL (>30)
[2023-10-28 17:14] LABS: Folate 13.5 ng/mL (> or = 4.0); Vitamin B12 401 pg/mL (200-900)
[2023-10-29 07:43] LABS: HIV AB/AG Nonreactive (Nonreactive); HIV Num 1 0.05 S/CO (0.00-0.99)
[2023-10-30 06:42] LABS: HCV Log PCR <1.18 NOT DETECTED Log IU/mL (NOT DETECTED); HepC Viral Load <15 NOT DETECTED IU/mL (NOT DETECTED)
== END 2023-10-28 14:46 | disposition home or self-care (01) ==
LOC: HO.HHCL 14:45
PROVIDERS: Visit Provider Internal Medicine
DX: R53.82 Chronic fatigue, unspecified (principal)
CPT/HCPCS: 36415; 80053; 82306; 82607; 82746; 83036; 84443; 85025; 87389; 87522

== ENCOUNTER 2024-05-13 09:29 | Outpatient (REF) | payer MEDICAID, SELFPAY ==
--- NOTE | ~2024-05-13 | XR_ITS ---
EXAMINATION: XR LUMBOSACRAL SPINE CLINICAL INFORMATION: 1 month h/o right low back pain with right radiculopathy COMPARISON: None available. TECHNIQUE: Three views of the lumbosacral spine. FINDINGS: Normal bone mineralization. No fractures, compression deformities, or suspicious bone lesions. Normal sagittal alignment. A minimal levoconvex scoliosis of the lower lumbar spine may be positional. Disc spaces demonstrate minimal narrowing L5-S1. They are otherwise preserved throughout. Facets are normally aligned without arthrosis. No pars defects. The sacrum and SI joints appear intact and normal. The soft tissues appear normal. XR/XR lumbar spine 2-3V IMPRESSION: 1. Mild disc space narrowing L5-S1. 2. Otherwise normal examination. Electronically signed by: Jhonny Addison MD 05/13/2024 09:51 AM BILL
== END 2024-05-13 09:30 | disposition home or self-care (01) ==
LOC: HO.HHCX 09:29
PROVIDERS: Visit Provider Emergency Medicine
DX: M54.41 Lumbago with sciatica, right side (principal)
CPT/HCPCS: 72100; 87086; 87088

== ENCOUNTER → 2024-05-13 09:30 | Outpatient (BNV) | payer MEDICAID, SELFPAY | PROVIDERS: Visit Provider Radiology Diagnostic Radiology | DX: M54.41 Lumbago with sciatica, right side (principal) | CPT/HCPCS: 72100 ==

== ENCOUNTER 2024-06-05 11:39 | Outpatient (RCR) | payer MEDICAID, SELFPAY | END 2024-06-18 13:34 | disposition home or self-care (01) | LOC: HO.PT 11:39 | PROVIDERS: PCP Internal Medicine; Visit Provider Emergency Medicine | DX: M54.41 Lumbago with sciatica, right side (principal) | CPT/HCPCS: 97110; 97161 ==

== ENCOUNTER 2024-08-19 17:37 | Outpatient (REF) | payer MEDICAID, SELFPAY ==
--- NOTE | ~2024-08-19 | MR_ITS ---
CLINICAL HISTORY: pain and R sided sciatica MR lumbar spine without contrast. COMPARISON: XR lumbar spine dated 05/13/24 at 09:51 EST FINDINGS: Normal alignment of the anterior and posterior elements without evidence of subluxation. Vertebral heights are maintained. Marrow signal is benign. The conus terminates at superior endplate of L2 and is otherwise unremarkable. Hemangioma present within the sacrum on the left. Right renal simple cyst measuring 1.2 cm. L5-S1: Desiccation of the disc. Central disc protrusion measuring 7 mm. This abuts the traversing S1 nerve root on the right. Mild bilateral neural foraminal narrowing. L4-L5: Intervertebral disc is normal in height. No significant disc bulge or central canal stenosis. L3-L4: Intervertebral disc is normal in height. No significant disc bulge or central canal stenosis. L2-L3: Intervertebral disc is normal in height. No significant disc bulge or central canal stenosis. L1-L2: Intervertebral disc is normal in height. No significant disc bulge or central canal stenosis. IMPRESSION: 1. Central disc protrusion at L5-S1 abuts the traversing S1 nerve root on the right. This document has been electronically signed by: Jl Yeh MD on 08/21/2024 14:44:34
--- OUTSIDE RECORDS SUMMARY | 2024-08-19 18:45 | XMS_ITS | Encounter Summary ---
Author Organization [employer] Address [address] [place] [address] Care Team Providers Care Instructional Interventionist Name Role Phone Usha Walls MD Primary Care Provide r Reason for Visit * Reason Onset Date Comments Letter for School/Work 06/08/2022 Encounter Details Date Type Department Care Team ([facility] st Contact Info) Description 06/08/2022 Telephone [facility] [address] [place] [address] Usha Walls MD [address] [place] [address] Letter for School/Work Social History Tobacco Use Types Packs/Day Years Used Date Smoking Tobacco: Unknown Smokeless Tobacco: Never Depression Answer Date Recorded Patient Health Questionnaire-2 Score 0 06/05/2022 Comments Unknown Sex and Gender Information Value Date Recorded Sex Assigned at Female 02/26/2022 10:34 AM EDT Legal Sex Female 10:34 AM EDT Gender Identity Female 02/26/2022 10:34 AM EDT Sexual Orientation Choose not to disclose 2021 10:34 AM EDT COVID-19 Exposure Response Date Recorded In the last 10 days, have yo u been in contact with someone who was confirmed or suspected to have Coronavirus/COVID-19? No / Unsure 06/05/2022 10:46 AM EST documented as of this encounter Miscellaneous Notes * Telephone Encounter - Tunde Valdes - 06/08/2022 12:41 PM EST Tc from pt requesting a letter for work stating unable to lift heavy things due to having pain and numbness in hands Please contact pt at [phone] documented in this encounter Plan of Treatment Upcoming Encounters Date Type Department Care Team (Late st Contact Info) Description 11/02/2024 2:00 PM EDT Office Visit [facility] [address] [place] [address] Usha Walls MD [address] [place], [place] [phone] documented as of this encounter Visit Diagnoses Not on filedocumented in this encounter Care Teams Instructional Interventionist Relationship Specialty Start Date End Date Usha Walls MD [address] [place] [phone] PCP - General Family Medicine 12/31/17 documented as of this encounter
--- OUTSIDE RECORDS SUMMARY | 2024-08-19 18:45 | XMS_ITS | Clinical Summary ---
Author Organization [employer] Address 75 [facility] 7t [place] [address] Care Team Providers Care Traffic Survey Technician Name Role Phone Usha Walls MD Primary Care Provide r Allergies Active Allergy Reactions Criticality Noted Date Comments Penicillin G 01/17/2018 Other reaction(s): Hives / Skin Rash Medications albuterol (2.5 MG/3ML) 0.083% nebulizer solution Take 3 mL (2.5 mg) by nebulization every 6 (six) hours if needed for wheezing or shortness of breath. 75 mL 1 01/29/20 23 Active cholecalcifero l (Vitamin D High Potency) 25 MCG (1000 UT) capsule Take 1 capsule (25 mcg) by mouth in the morning. 90 capsule 3 07/23/19 24 Active Melatonin 3 MG capsuleIndicat ions:Primary insomnia Take 3 mg by mouth at bedtime. 30 capsule 1 10/28/19 24 Active lidocaine (Lidoderm) 5 % patch Apply 1 patch topically Once per day. Remove & discard patch within 12 hours or as directed by MD. 30 patch 2 05/13/19 25 2025 Active naproxen sodium (Aleve) 220 MG tablet Take 1 tablet (220 mg) by mouth with breakfast, with lunch, and with evening meal. 90 tablet 3 07/22/19 25 2025 Active acetaminophen (Tylenol) 500 MG tablet Take 2 tablets (1,000 mg) by mouth every 8 (eight) hours if needed for moderate pain for up to 25 doses. 50 tablet 07/22/19 25 Active amitriptyline (Elavil) 10 MG tablet Take 1 tablet (10 mg) by mouth if needed at bedtime for sleep (and pain). 30 tablet 07/22/19 25 2024 Active fluticasone (Flonase) 50 MCG/ACT nasal sprayIndicatio ns:Dysfunction of right eustachian tube Administer 1 spray into each nostril in the morning. 16 g 02/14/202024 Discontinued(T herapy completed) hydrOXYzine HCl (Atarax) 25 MG tabletIndicati ons:Anxiety Take 1 tablet (25 mg) by mouth every 8 (eight) hours if needed for anxiety. Take 1-2 tablets by oral route as needed up to four times daily for anxiety 30 tablet 1 10/28/192024 Discontinued(T herapy completed) SUMAtriptan (Imitrex) 25 MG tabletIndicati ons:Migraine with aura and without status migrainosus, not intractable Take 1 tablet (25 mg) by mouth 1 (one) time if needed for migraine for up to 18 doses. May repeat dose once in 2 hours if no relief. Do not exceed 2 doses in 24 hours. 9 tablet 1 10/28/192024 Discontinued(T herapy completed) acetaminophen (Tylenol) 500 MG tablet Take 2 tablets (1,000 mg) by mouth every 6 (six) hours if needed for moderate pain or fever for up to 25 doses. 50 tablet 05/13/192024 Discontinued(R eoreyeser (will not trigger notification to Pharmacy)) ibuprofen 400 MG tablet Take 1 tablet (400 mg) by mouth every 6 (six) hours if needed for moderate pain or fever for up to 30 doses. 30 tablet 05/13/192024 Discontinued(T herapy completed) tiZANidine (Zanaflex) 2 MG tablet Take 1 tablet (2 mg) by mouth every 8 (eight) hours if needed for muscle spasms. May take 2 tablets at a time prn 30 tablet 05/13/192024 Discontinued(T herapy completed) melatonin 3 MG tablet Take 3 mg by mouth at bedtime. 10/28/19 24 2024 Discontinued(T herapy completed) Active Problems Problem Noted Date Diagnosed Date Chronic right-sided low back pain with right-toney ed sciatica 07/27/2024 Assessment & Plan (07/27/2024 7:35 PM EDT): MRI lumbar spine ordered after more than 6 weeks of physician directed therapy, including medication trial and physical therapy - refer to [facility] for possible injections - no red flag symptoms on history or exam Anxiety 10/28/2023 Assessment & Plan (10/28/2023 4:24 PM EDT): We talked about non-medication interventions for anxiety including exercise, meditation, counseling, mindfulness practices I will star her on hydroxyzine PRN Patient declines BHN referral Primary insomnia 10/28/2023 Assessment & Plan (10/28/2023 4:23 PM EDT): Patient educated about sleep hygiene I will start her on melatonin 3mg at bed time Menstrual cramps 10/28/2023 Encounter for Papanicolaou s mear for cervical cancer screening 07/31/2023 Assessment & Plan (07/31/2023 4:34 PM EDT): Pelvic exam and PAP smear done Patient will be contacted with results Encounter for preventative adult health care exa mination 10/22/2022 Assessment & Plan (10/28/2023 4:24 PM EDT): See HPI Assessment & Plan (10/22/2022 3:26 PM EDT): Please see HPI Paresthesia of hand 10/19/2022 Carpal tunnel syndrome 06/05/2022 Assessment & Plan (10/22/2022 3:26 PM EDT): I will prescribed right wrist brace I instructed to used it while sleeping Migraine with aura 06/05/2022 Assessment & Plan (10/28/2023 4:24 PM EDT): I advise to avoid migraine triggers like red wine, chocolate, cheese, strong perfumes Assessment & Plan (10/22/2022 3:27 PM EDT): I advise to avoid migraine triggers like red wine, chocolate, cheese, strong perfumes C/w sumatriptan PRN Fatigue 06/05/2022 Encounters Date Type Department Care Team Description 07/30/2024 Telephone [facility] [address] [place] [address] Usha Walls MD FMLA (I called the patient regarding a FMLA application, from [employer]. She stated that she is requesting a continuous leave from 07/16/24 to 07/29/24. Her MRI appointment is pending.) 07/21/2024 11:15 AM EDT Office Visit [facility] [address] [place] [address] Paty Moctezuma MD Chronic right-sided low back pain with right-sided sciatica (Primary Dx) 07/21/2024 Travel 07/17/2024 Telephone [facility] [address] [place] [address] Usha Walls MD Referral 07/10/2024 Population Health Risk Score [facility] Department [address] [place] [address] [phone] Provider, Population Health Generic 05/21/2024 Telephone [facility] [address] [place] [address] Shelia Emmanuel, PA Results from Last 3 Months Immunizations Name Administration Dates Next Due Influenza injectable quadriv alent IIV4 with preservative 01/17/2018 Tdap 10/22/2022 Social History Tobacco Use Types Packs/Day Years Used Date Smoking Tobacco: Never Passive Smoke Exposure: Never Smokeless Tobacco: Never Tobacco Cessation:Counseling Given: Not Answered Alcohol Use Standard Drinks/Week Comments Never 0 (1 standard drink = 0.6 oz pur e alcohol) Depression Answer Date Recorded Patient Health Questionnaire-9 Score 7 10/28/2023 Patient Health Questionnaire-9 Score 7 10/28/2023 Last PHQ-9: Questionnaire Data Not on file 0 10/28/2023 Housing Stability Answer Date Recorded What is your housing situation today? I have james camilo 10/17/[address] you li ve. Do you have problems with any of the following? Pests such as bugs, ants, or mice 10/17/2023 Food Insecurity Answer Date Recorded Within the past 12 months, y ou worried that your food would run out before you got money to buy more: Never True 10/17/2023 Within the past 12 months,th e food you bought just didn't last and you didn't have enough money to get more: Never True Transportation Answer Date Recorded In the past 12 months, has l ack of transportation kept you from medical appts, meetings, work or from getting things needed for daily living? No 10/17/2023 Utilities Answer Date Recorded In the past 12 months, has t he electric, gas, oil or water company threatened to shut off services in your home? No 10/17/2023 Depression Answer Date Recorded Patient Health Questionnaire-2 Score 1 10/28/2023 Internet Access Answer Date Recorded Internet Access Q1 Yes 12/30/2023 Internet Access Q2 Not on file 12/30/2023 Comments Unknown Sex and Gender Information Value Date Recorded Sex Assigned at Female 02/26/2022 10:34 AM EDT Legal Sex Female 10:34 AM EDT Gender Identity Female 02/26/2022 10:34 AM EDT Sexual Orientation Choose not to disclose 2021 10:34 AM EDT Last Filed Vital Signs Vital Sign Reading Time Taken Comments Blood Pressure 112/72 07/21/2024 10:56 AM EDT Pulse 91 07/21/2024 10:56 AM EDT Temperature 36.8 ??C (98.3 ??F) 07/21/2024 10:56 AM E DT Respiratory Rate 16 07/21/2024 10:56 AM EDT Oxygen Saturation 99% 07/21/2024 10:56 AM EDT Inhaled Oxygen Concentration - - Weight 57.2 kg (126 lb) 07/21/2024 10:56 AM EDT Height 157.5 cm (5' 2 ) 07/21/2024 10:56 AM EDT Body Mass Index 23.05 07/21/2024 10:56 AM EDT Plan of Treatment Upcoming Encounters Date Type Department Care Team (Late st Contact Info) Description 11/02/2024 2:00 PM EDT Office Visit [facility] [address] [place] [phone] Usha Walls MD [address] [place] [address] Health Maintenance Due Date Last Done Comments Alcohol/Substance Use Screening 2004 Family Planning (PISQ) 10/12/2007 Hepatitis B Vaccines (1 of 3 - 19+ 3-dose series) 10/12/2011 COVID-19 Vaccine (3 - 2023- season) 2023 09/15/2020, 08/18/2020 Influenza Vaccine (#1) 2023 01/17/2018 SDOH Screening 10/16/2024 10/17/2023 Depression Screening 10/27/2024 10/28/2023, 10/28/19 Tobacco Screening 07/21/2025 07/21/2024 Cervical Cancer Screening 07/30/2028 HPV/Cotest 07/30/2028 07/31/2023 Pap Smear 07/30/2028 07/31/2023, 0406/2023, 08/22/2020 DTaP/Tdap/Td Vaccines (2 - Td or Tdap) 10/22/2032 10/22/2022 Zoster Vaccines (1 of 2) 2042 RSV Patients and Patients Aged 60 years or older (1 - 1-dose 75+ series) 10/12/2067 HIV Screening Completed 10/28/2023, 09/28, 08/08/2021, Additional history exists Hepatitis C Screening Completed 10/28/2023 , 10/22/2022, 08/08/2021, Additional history exists HIB Vaccines Aged Out No longer eligi ble based on patient's age to complete this topic HPV Vaccines Aged Out No longer eligi ble based on patient's age to complete this topic Hepatitis A Vaccines Aged Out No long er eligible based on patient's age to complete this topic IPV Vaccines Aged Out No longer eligi ble based on patient's age to complete this topic Meningococcal Vaccine Aged Out No jameson sb eligible based on patient's age to complete this topic Pneumococcal Vaccine: Pediatrics (0 to 5 Years) and At-Risk Patients (6 to 49) Years) Aged Out No longer eligible based on patient's age to complete this topic RSV under 20 months Aged Out No longe r eligible based on patient's age to complete this topic Rotavirus Vaccines Aged Out No longer eligible based on patient's age to complete this topic Procedures Procedure Name Priority Date/Time Associated Diagnosis Comments HEPATITIS C VIRAL RNA, QUANTITATIVE, REAL-TIME PCR Routine 10/28/2023 2:50 PM EDT Chronic fatigue HIV 1/2 ANTIGEN/ANTIBODY, FOURTH GENERATION W/RFL Routine 10/28/2023 2:50 PM EDT Chronic fatigue HPV MRNA E6/E7 REFLEX TO HPV 16, 18/45 Routine 07/31/2023 4:00 PM EDT IMAGE-GUIDED PAP W/AGE BASED SCR,W/CT/NG/TRICH Routine 07/31/2023 4:00 PM EDT Encounter for Papanicolaou smear for cervical cancer screening from Last 3 Months or Most Recently Relevant to Health Maintenance Results * Hepatitis C Viral RNA, Quantitative, Real-Time PCR (10/28/2023 2:50 PM EDT) Hepatitis C Viral Load <15 NOT DETECTED NOT DETECTED IU/mL [facility] HCV Log PCR <1.18 NOT DETECTED NOT DETECTED Log IU/mL [facility] Comment:For additional infor orin, please refer tohttp://education.[employer] [place]/faq/AVC21w0(This link is being provided for informational/educational purposes only.)THIS TEST WAS PERFORMED AT:[facility] [place] [phone] DAVENPORT MD Blood 10/28/2023 2:50 PM EDT 10/28/2023 4:03 PM EDT us Usha Martinez MD LAB BLOOD ORDERABLES Final Result [facility] [address] [place] [phone] * HIV-1/2 Antigen and Antibodies, Fourth Generation, with Reflexes (10/28/2023 2:50 PM EDT) HIV AB/AG Nonreactive Nonreactive [facility] Comment:HIV-1 p24 Ag and/or HIV-1/HIV-2 Ab not detected.A test result that is nonreactive does not exclude thepossibility of exposure to or infection with HIV-1 and/orHIV-2. Nonreactive results in this assay for individualswith prior exposure to HIV-1 and/or HIV-2 may be due toantigen and antibody levels that are below the limit ofdetection of this assay.The [facility] HIV Ag/Ab Combo assay result andsupplemental assay results should be interpreted inconjunction with the patient's clinical presentation,history and other laboratory results. If the results areinconsistent with clinical evidence, additional testing issuggested to confirm the result. Blood Venous blood specimen / Unknown 10/28/2023 2:50 PM EDT 10/28/2023 4:03 PM EDT us Usha Martinez MD LAB BLOOD ORDERABLES Final Result [facility] [address] [place] [phone] * Image-Guided Pap with Age-Based Screening??with CT/NG,??Trichomonas (07/31/2023 4:00 PM EDT) Trichomonas (NAAT) NOT DETECTED NOT DETECTED [facility] Comment:The analytical perfo rmance characteristics of thisassay have been determined by [employer]. Themodifications have not been cleared or approved bythe FDA. This assay has been validated pursuant to theCLIA regulations and is used for clinical purposes.For additional information, please refer tohttp://education.[employer] [place]/faq/Trichomonastma(This link is being provided for information/educational purposes only.)THIS TEST WAS PERFORMED AT:[facility] [place] [phone] DAVENPORT MD CTNG Ref Lab NOT DETECTED NOT DETECTED [facility] NG Ref Lab NOT DETECTED NOT DETECTED [facility] Pap Vial Vaginal structure / Unknown 07/31/2023 4:00 PM EDT 08/01/2023 6:30 AM EDT Usha Martinez MD LAB CYTOLOGY ORDERABL ES Final Result Performing Organization Address [facility] Co de Phone Number [facility] [address] [place] [phone] * HPV mRNA E6/E7 w/Reflex to HPV Genotypes 16, 18/45 (07/31/2023 4:00 PM EDT) HPV nRNA E6/E7 Not Detected Not Detected [facility] Comment:Methodology: Transcr iption-Mediated AmplificationThis assay detects E6/E7 viral messenger RNA (mRNA) from 14high-risk HPV types (16,18,31,33,35,39,45,51,52,56,58,59,66,68).Cervical sources are required for HPV testing.If a vaginal source from a patient who has had atotal hysterectomy with removal of cervix wassubmitted, please contact the testing laboratoryfor alternative testing options.For additional information, please refer tohttp://education.[employer] [place]/faq/BRJ575f0(This link if provided for information/educational purposes only.)THIS TEST WAS PERFORMED AT:[facility] [place] [phone] DAVENPORT MD HPV mRNA E6/E7 [facility] HPV 16 RNA TNP [facility] HPV 18/45 RNA [facility] 07/31/2023 4:00 PM EDT 08/01/2023 6:30 AM EDT us Usha Martinez MD LAB CYTOLOGY ORDERABL ES Final Result Performing Organization Address [facility]/ZIP Co de Phone Number [facility] [address] [place] [phone] from Last 3 Months or Most Recently Relevant to Health Maintenance Insurance [employer] C3 Care Teams Traffic Survey Technician Relationship Specialty Start Date End Date Usha Walls MD [address] [place] [phone] PCP - General Family Medicine 12/31/17
--- OUTSIDE RECORDS SUMMARY | 2024-08-19 18:45 | XMS_ITS | Encounter Summary ---
Author Organization [employer] Address [address] [facility] 7t [place] [address] Care Team Providers Care Production Tester Name Role Phone Usha Walls MD Primary Care Provide r Reason for Visit * Reason Onset Date Comments Med Refill 01/28/2024 Encounter Details Date Type Department Care Team ([facility] st Contact Info) Description 01/28/2024 Refill [facility] [address] [place] [address] Usha Walls MD [address] [place] [address] Social History Tobacco Use Types Packs/Day Years Used Date Smoking Tobacco: Never Passive Smoke Exposure: Never Smokeless Tobacco: Never Alcohol Use Standard Drinks/Week Comments Never 0 [...] not to disclose 2021 10:34 AM EDT documented as of this encounter Plan of Treatment Upcoming Encounters Date Type Department Care Team (Late st Contact Info) Description 11/02/2024 2:00 PM EDT Office Visit [facility] [address] [place] [address] Usha Walls MD [address] [place] [address] documented as of this encounter Visit Diagnoses Not on filedocumented in this encounter Additional Health Concerns Assessment Noted Time PHQ-9 Depression Total Score: 7 10/28/19 24 1:51 PM EDT documented as of this encounter Care Teams Production Tester Relationship Specialty Start Date End Date Usha Walls MD [address] [place] [phone] PCP - General Family Medicine 12/31/17 documented as of this encounter
--- OUTSIDE RECORDS SUMMARY | 2024-08-19 18:45 | XMS_ITS | Encounter Summary ---
Author Organization [employer] [facility] Address 75 [facility] 7t [place] [address] Care Team Providers Care Business Information Manager Name Role Phone Usha Walls MD Primary Care Provide r Reason for Visit * Reason Onset Date Comments triage 05/24/2022 Encounter Details Date Type Department Care Team ([facility] st Contact Info) Description 05/24/2022 Telephone [facility] [address] [place], [place] [phone] Usha Walls MD [address] [place], [place] [phone] triage Social History Tobacco Use Types Packs/Day Years Used Date Smoking Tobacco: Never Assessed Comments Unknown Sex and Gender Information Value Date Recorded Sex Assigned at Female 02/26/2022 10:34 AM EDT Legal Sex Female 10:34 AM EDT Gender Identity Female 02/26/2022 10:34 AM EDT Sexual Orientation Choose not to disclose 2021 10:34 AM EDT documented as of this encounter Miscellaneous Notes * Telephone Encounter - Odessa Rosenbaum RN - 05/24/2022 4:59 PM EST Call returned to patient for triage. No answer LVM to return call to [facility] triage line. * Telephone Encounter - Mayi Blair - 05/24/2022 12:00 PM EST Symptom: Numbness Outcome: Schedule an urgent appointment (within 1 hour) or talk to a nurse or provider soon Reason: Getting worse The caller accepted this outcome documented in this encounter Plan of Treatment Upcoming Encounters Date Type Department Care Team (Late st Contact Info) Description 11/02/2024 2:00 PM EDT Office Visit [facility] [address] [place], [place] [phone] Usha Walls MD [address] [place] [address] documented as of this encounter Visit Diagnoses Not on filedocumented in this encounter Care Teams Business Information Manager Relationship Specialty Start Date End Date Usha Walls MD [address] [place] [phone] PCP - General Family Medicine 12/31/17 documented as of this encounter
--- OUTSIDE RECORDS SUMMARY | 2024-08-19 18:45 | XMS_ITS | Encounter Summary ---
Author Organization [employer] Address 75 [facility] 7t [place] [address] Care Team Providers Care Log Raft Worker Name Role Phone Usha Walls MD Primary Care Provide r Reason for Visit * Reason Comments Med Refill Encounter Details Date Type Department Care Team ([facility] st Contact Info) Description 05/16/2024 Refill [facility] [address] [place] [address] Usha Walls MD [address] [place], [place] [phone] Menstrual cramps Social History Tobacco Use Types Packs/Day Years [...] Description 11/02/2024 2:00 PM EDT Office Visit [facility] [address] [place] [address] Usha Walls MD [address] [place] [address] documented as of this encounter Visit Diagnoses Diagnosis Menstrual cramps Dysmenorrhea documented in this encounter Additional Health Concerns Assessment Noted Time PHQ-9 Depression Total Score: 7 10/28/19 24 1:51 PM EDT documented as of this encounter Care Teams Log Raft Worker Relationship Specialty Start Date End Date Usha Walls MD [address] [place] [phone] PCP - General Family Medicine 12/31/17 documented as of this encounter
--- OUTSIDE RECORDS SUMMARY | 2024-08-19 18:45 | XMS_ITS | Encounter Summary ---
Author Organization [employer] Address 75 [facility] 7t [place] [address] Care Team Providers Care Day Trader Name Role Phone Usha Walls MD Primary Care Provide r Reason for Visit * Reason Onset Date Comments Med Refill 12/19/2022 Encounter Details Date Type Department Care Team ([facility] st Contact Info) Description 12/19/2022 Telephone [facility] [address] [place] [address] Usha Walls MD [address] [place], [place] [phone] Med Refill Social History Tobacco Use Types Packs/Day Years Used Date Smoking Tobacco: Unknown Smokeless Tobacco: Never Alcohol Use Standard Drinks/Week Comments Never 0 (1 standard drink = 0.6 oz pur e alcohol) Depression Answer Date Recorded Patient Health Questionnaire-2 Score 0 06/05/2022 Comments Unknown Sex and Gender Information Value Date Recorded Sex Assigned at Female 02/26/2022 10:34 AM EDT Legal Sex Female 10:34 AM EDT Gender Identity Female 02/26/2022 10:34 AM EDT Sexual Orientation Choose not to disclose 2021 10:34 AM EDT documented as of this encounter Miscellaneous Notes * Telephone Encounter - Darleen Adhikari LPN - 12/19/2022 3:11 PM EDT Medication was sent to [facility] on 11/22/22 #90 with 3 refills. * Telephone Encounter - Amira Matias - 12/19/2022 3:01 PM EDT Tc from pt requesting medication refill on Vitamin D High Potency 25 MCG (1000 UT) capsule documented in this encounter Plan of Treatment Upcoming Encounters Date Type Department Care Team (Late st Contact Info) Description 11/02/2024 2:00 PM EDT Office Visit [facility] [address] [place], [place] [phone] Usha Walls MD [address] [place], [place] [phone] documented as of this encounter Visit Diagnoses Not on filedocumented in this encounter Care Teams Day Trader Relationship Specialty Start Date End Date Usha Walls MD [address] [place] [address] PCP - General Family Medicine 12/31/17 documented as of this encounter
--- OUTSIDE RECORDS SUMMARY | 2024-08-19 18:45 | XMS_ITS | Encounter Summary ---
Author Organization [employer] [facility] Address 75 [facility] 7t [place] [address] Care Team Providers Care Lead Sql Developer Name Role Phone Usha Walls MD Primary Care Provide r Encounter Details Date Type Department Care Team (Late Contact Info) Description 01/22/2023 Orders Only [facility] [address] [place] [address] [phone] Provider, MD Nilsa Social History Tobacco Use Types Packs/Day Years [...] Description 11/02/2024 2:00 PM EDT Office Visit [facility] [address] [place] [address] [phone] Usha Walls MD [address] [place] [address] [phone] documented as of this encounter Procedures Procedure Name Priority Date/Time Associated Diagnosis Comments HM PAP/HPV Routine 08/22/2020 documented in this encounter Results * Hm Pap Smear (08/22/2020) Historical Provider HEALTH MAINTENANCE Final Result documented in this encounter Visit Diagnoses Not on filedocumented in this encounter Care Teams Lead Sql Developer Relationship Specialty Start Date End Date Usha Walls MD [address] [place] [phone] PCP - General Family Medicine 12/31/17 documented as of this encounter
--- OUTSIDE RECORDS SUMMARY | 2024-08-19 18:45 | XMS_ITS | Encounter Summary ---
Author Organization [employer] Address [address] [facility] 7t [place] [address] Care Team Providers Care Cotton Program Technician Name Role Phone Usha Walls MD Primary Care Provide r Encounter Details Date Type Department Care Team ([facility] Contact Info) Description 11/22/2022 Orders Only [facility] [address] [place], [place] [phone] Darleen Adhikari LPN Social History Tobacco Use Types Packs/Day Years [...] Encounters Date Type Department Care Team (Late Contact Info) Description 11/02/2024 2:00 PM EDT Office Visit [facility]INE [address] [place], [place] [phone] Usha Walls MD [address] [place], [place] [phone] documented as of this encounter Visit Diagnoses Not on filedocumented in this encounter Care Teams Cotton Program Technician Relationship Specialty Start Date End Date Usha Walls MD [address] [place] [address] [phone] PCP - General Family Medicine 12/31/17 documented as of this encounter
== END 2024-08-19 17:38 | disposition home or self-care (01) ==
LOC: HO.MRI 17:37
PROVIDERS: PCP Internal Medicine; Visit Provider General Practice
DX: M54.41 Lumbago with sciatica, right side (principal); G89.29 Other chronic pain
CPT/HCPCS: 72148

== ENCOUNTER → 2024-08-19 17:46 | Outpatient (BNV) | payer MEDICAID, SELFPAY | PROVIDERS: PCP Internal Medicine; Visit Provider Radiology Diagnostic Radiology | DX: M54.41 Lumbago with sciatica, right side (principal); M51.27 Other intervertebral disc displacement, lumbosacral region | CPT/HCPCS: 72148 ==

== ENCOUNTER 2025-02-19 14:28 | Outpatient (REF) | payer MEDICAID, SELFPAY ==
--- OUTSIDE RECORDS SUMMARY | 2025-02-19 16:22 | XMS_ITS | Encounter Summary ---
Author Organization [employer] Address [address] [facility] 7t [place] [address] Care Team Providers Care Medical Manager Name Role Phone Usha Walls MD Primary Care Provide r Reason for Visit * Reason Comments Med Refill Encounter Details Date Type Department Care Team ([facility] st Contact Info) Description 05/16/2024 Refill [facility] [address] [place] [address] Usha Walls MD 230 [place], [place] [phone] Menstrual cramps Social History Tobacco Use Types [...] Care Team (Late st Contact Info) Description 05/07/2025 3:30 PM EST Office Visit [facility] [address] [place] [address] Usha Walls MD [address] [place] [phone] documented as of this encounter Visit Diagnoses Diagnosis Menstrual cramps Dysmenorrhea documented in this encounter Additional Health Concerns Assessment Noted Time PHQ-9 Depression Total Score: 7 10/28/19 24 1:51 PM EDT documented as of this encounter Care Teams Medical Manager Relationship Specialty Start Date End Date Usha Walls MD [address] [place] [phone] PCP - General Family Medicine 12/31/17 documented as of this encounter
--- OUTSIDE RECORDS SUMMARY | 2025-02-19 16:22 | XMS_ITS | Clinical Summary ---
Author Organization [employer] Address [address] [facility] 7t [place] [address] Care Team Providers Care Miner Helper Name Role Phone Usha Walls MD Primary Care Provide r Allergies Active Allergy Reactions Criticality Noted Date Comments Penicillin G 01/17/2018 Other reaction(s): Hives / Skin Rash Medications albuterol (2.5 MG/3ML) 0.083% nebulizer solution Take 3 mL (2.5 mg) by nebulization every 6 (six) hours if needed for wheezing or shortness of breath. 75 mL 1 3 Active Melatonin 3 MG capsuleIndicati ons:Primary insomnia Take 3 mg by mouth at bedtime. 30 capsule 1 4 Active lidocaine (Lidoderm) 5 % patch Apply 1 patch topically Once per day. Remove & discard patch within 12 hours or as directed by MD. 30 patch 2 5 05/13/19 26 Active naproxen sodium (Aleve) 220 MG tablet Take 1 tablet (220 mg) by mouth with breakfast, with lunch, and with evening meal. 90 tablet 3 5 07/22/19 26 Active acetaminophen (Tylenol) 500 MG tablet Take 2 tablets (1,000 mg) by mouth every 8 (eight) hours if needed for moderate pain for up to 25 doses. 50 tablet 5 Active amitriptyline (Elavil) 10 MG tablet Take 1 tablet (10 mg) by mouth if needed at bedtime for sleep (and pain). 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 07/27/2024 Assessment & Plan (11/02/2024 4:32 PM EDT): Continue to follow-up with specialist Assessment & Plan (07/27/2024 7:35 PM EDT): [...] care exa mination 10/22/2022 Assessment & Plan (11/02/2024 4:31 PM EDT): See HPI Assessment & Plan (10/28/2023 4:24 PM EDT): [...] Encounters Date Type Department Care Team Description 02/19/2025 Telephone [facility] [address] [place] [phone] Usha Walls MD mic recall 02/19/[address] [address] Usha Walls MD MMR titers 02/18/[address] [address] Usha Walls MD Nurse Triage from Last 3 Months Immunizations Immunization Administration Dates Next Due Influenza injectable quadriv [...] housing situation today? I have james camilo 10/23/[address] you li ve. Do you have problems with any of the following? None of the above 10/23/2024 Food Insecurity Answer Date Recorded Within the past 12 months, y ou worried that your food would run out before you got money to buy more: Never True 10/23/2024 Within the past 12 months,th e food you bought just didn't last and you didn't have enough money to get more: Never True Transportation Answer Date Recorded In the past 12 months, has l ack of transportation kept you from medical appts, meetings, work or from getting things needed for daily living? No 10/23/2024 Utilities Answer Date Recorded In the past 12 months, has t he electric, gas, oil or water company threatened to shut off services in your home? No 10/23/2024 Depression Answer Date Recorded Patient Health Questionnaire-2 Score 0 11/02/2024 Internet Access Answer Date Recorded Internet Access Q1 No 11/02/2024 Internet Access Q2 I do not want or need it 10/2024 Comments No Sex and Gender Information Value Date Recorded Sex Assigned at Female 02/26/2022 10:34 AM EDT Legal Sex Female 10:34 AM EDT Gender Identity Female 02/26/2022 10:34 AM EDT Sexual Orientation Choose not to disclose 2021 10:34 AM EDT Last Filed Vital Signs Vital Sign Reading Time Taken Comments Blood Pressure 110/70 11/02/2024 1:40 PM EDT Pulse 88 11/02/2024 1:40 PM EDT Temperature 36.5 C (97.7 F) 11/02/2024 1:40 PM EDT Respiratory Rate 12 11/02/2024 1:40 PM EDT Oxygen Saturation 99% 07/21/2024 10:56 AM EDT Inhaled Oxygen Concentration - - Weight 58.1 kg (128 lb 2 oz) 11/02/2024 1:40 PM EDT Height 157.5 cm (5' 2 ) 11/02/2024 1:40 PM EDT Body Mass Index 23.43 11/02/2024 1:40 PM EDT Plan of Treatment Upcoming Encounters Date Type Department Care Team (Late st Contact Info) Description 05/07/2025 3:30 PM EST Office Visit [facility] 230 [place], [place] [phone] Usha Walls MD [address] [place] [address] Health Maintenance Due Date Last Done Comments Family Planning (PISQ) 10/12/2007 HPV Vaccines (1 - 3-dose series) 10/12/2007 Hepatitis B Vaccines (1 of 3 - 19+ 3-dose series) 10/12/2011 COVID-19 Vaccine (3 - season) 2024 09/15/2020, 08/18/2020 Influenza Vaccine (#1) 2024 01/17/2018 SDOH Screening 10/23/2025 10/23/2024 Alcohol/Substance Use Screening 11/02/2025 11/02/2024 Depression Screening 11/02/2025 11/02/2024, 10/28/19 24 Disability Screening 11/02/2025 11/02/2024 Tobacco Screening 11/02/2025 11/02/2024 Cervical Cancer Screening 07/30/2028 HPV/Cotest 07/30/2028 07/31/2023 Pap Smear 07/30/2028 07/31/2023, 04/0 06/2023, 08/22/2020 DTaP/Tdap/Td Vaccines (2 - Td or [...] patient's age to complete this topic Meningococcal B Vaccine Aged Out No l onger eligible based on patient's age to complete this topic Meningococcal Vaccine Aged Out No jameson sb eligible based on patient's age to complete this topic Pneumococcal Vaccine: Pediatrics (0 to 5 Years) and At-Risk Patients (6 to 49) Years Aged Out No longer eligible based on [...] Load <15 NOT DETECTED NOT DETECTED IU/mL [facility] HCV Log PCR <1.18 NOT DETECTED NOT DETECTED Log IU/mL [facility] Comment:For additional infor orin, please refer tohttp://education.my3Dreams/faq/MNW20x0(This link is being provided for informational/educational purposes only.)THIS TEST WAS PERFORMED AT:[facility] [place] [id number] DAVENPORT MD Blood 10/28/2023 2:50 PM EDT 10/28/2023 4:03 PM EDT us Usha Martinez MD LAB BLOOD ORDERABLES Final Result [facility] [address] [place] [phone] * HIV-1/2 Antigen and Antibodies, Fourth Generation, with Reflexes (10/28/2023 2:50 PM EDT) Pathologist [facility] HIV AB/AG Nonreactive Nonreactive [facility] Comment:HIV-1 p24 Ag and/or HIV-1/HIV-2 Ab not detected.A test result that is nonreactive does not exclude thepossibility of exposure to or infection with HIV-1 and/orHIV-2. Nonreactive results in this assay for individualswith prior exposure to HIV-1 and/or HIV-2 may be due toantigen and antibody levels that are below the limit ofdetection of this assay.The [employer] [facility] [employer] HIV Ag/Ab Combo assay result andsupplemental assay results should be interpreted inconjunction with the patient's clinical presentation,history and other laboratory results. If the results areinconsistent with clinical evidence, additional testing issuggested to confirm the result. Blood Venous blood specimen / Unknown 10/28/2023 2:50 PM EDT 10/28/2023 4:03 PM EDT us Usha Martinez MD LAB BLOOD ORDERABLES Final Result [facility] [address] [place] [phone] * Image-Guided Pap with Age-Based Screening??with CT/NG,??Trichomonas (07/31/2023 4:00 PM EDT) Pathologist [facility] Trichomonas (NAAT) NOT DETECTED NOT DETECTED [facility] Comment:The analytical perfo rmance characteristics of thisassay have been determined by [employer]. Themodifications have not been cleared or approved bythe FDA. This assay has been validated pursuant to theCLIA regulations and is used for clinical purposes.For additional information, please refer tohttp://education.[employer]/faq/Trichomonastma(This link is being provided for information/educational purposes only.)THIS TEST WAS PERFORMED AT:[facility] [address] [id number] DAVENPORT MD CTNG Ref Lab NOT DETECTED NOT DETECTED [facility] NG Ref Lab NOT DETECTED NOT DETECTED [facility] Pap Vial Vaginal structure / Unknown 07/31/2023 4:00 PM EDT 08/01/2023 6:30 AM EDT Usha Martinez MD LAB CYTOLOGY ORDERABL ES Final Result Performing Organization Address [facility] Co de Phone Number [facility] [address] [place] [address] [phone] * HPV mRNA E6/E7 w/Reflex to HPV Genotypes 16, 18/45 (07/31/2023 4:00 PM EDT) HPV nRNA E6/E7 Not Detected Not Detected [facility] Comment:Methodology: Transcr iption-Mediated AmplificationThis assay detects E6/E7 viral messenger RNA (mRNA) from 14high-risk HPV types (16,18,31,33,35,39,45,51,52,56,58,59,66,68).Cervical sources are required for HPV testing.If a vaginal source from a patient who has had atotal hysterectomy with removal of cervix wassubmitted, please contact the testing laboratoryfor alternative testing options.For additional information, please refer tohttp://education.my3Dreams/faq/UER797e1(This link if provided for information/educational purposes only.)THIS TEST WAS PERFORMED AT:[facility] [address] [id number] DAVENPORT MD HPV mRNA E6/E7 TNP [facility] HPV 16 RNA TNP [facility] HPV 18/45 RNA [facility] 07/31/2023 4:00 PM EDT 08/01/2023 6:30 AM EDT us Usha Martinez MD LAB CYTOLOGY ORDERABL ES Final Result Performing Organization Address [facility]/ZIP Co de Phone Number [facility] [address] [place] [address] [phone] from Last 3 Months or Most Recently Relevant to Health Maintenance Insurance [facility] C3 Care Teams Miner Helper Relationship Specialty Start Date End Date Usha Walls MD [address] [place] [phone] PCP - General Family Medicine 12/31/17
--- OUTSIDE RECORDS SUMMARY | 2025-02-19 16:22 | XMS_ITS | Encounter Summary ---
Author Organization [employer] Address [address] [facility] 7t [place] [address] Care Team Providers Care Gizzard Peeler Name Role Phone Usha Walls MD Primary Care Provide r Reason for Visit * Reason Onset Date Comments MMR titers 02/19/2025 Encounter Details Date Type Department Care Team ([facility] st Contact Info) Description 02/19/2025 Telephone [facility] [address] [place], [place] [phone] Usha Walls MD [address] [place], [place] [phone] MMR titers Social History Tobacco Use Types Packs/Day Years [...] encounter Miscellaneous Notes * Telephone Encounter - Vivian Chan RN - 02/19/2025 9:37 AM EDT RN received incoming call from forms department 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 Orders have been placed and forms department will notify the patient. documented in this encounter Plan of Treatment Upcoming Encounters Date Type Department Care Team (Late st Contact Info) Description 05/07/2025 3:30 PM EST Office Visit [facility] [address] [place] [phone] Usha Walls MD [address] [place] [address] Scheduled Orders Name Type Priority Associated Diagnoses Orde r Schedule Measles, Mumps, and Rubella (MMR) Antibodies (IgG) Panel, Immune Status Lab Routine Encounter for preventative adult health care examination Expected: 02/19/2025 (Approximate), Expires: 02/19/2026 documented as of this encounter Visit Diagnoses Diagnosis Encounter for preventative adult health care examination documented in this encounter Additional Health Concerns Assessment Noted Time PHQ-9 Depression Total Score: 7 10/28/19 24 1:51 PM EDT documented as of this encounter Care Teams Gizzard Peeler Relationship Specialty Start Date End Date Usha Walls MD [address] [place] [phone] PCP - General Family Medicine 12/31/17 documented as of this encounter
--- OUTSIDE RECORDS SUMMARY | 2025-02-19 16:22 | XMS_ITS | Encounter Summary ---
Author Organization [facility] Address [address] [facility] 7t [place] [address] Care Team Providers Care Department Helper Name Role Phone Usha Walls MD Primary Care Provide r Encounter Details Date Type Department Care Team ([facility] Contact Info) Description 01/22/2023 Orders Only [facility] [address] [place] [address] [phone] Provider, MD Nilsa Social History Tobacco Use [...] Department Care Team (Late Contact Info) Description 05/07/2025 3:30 PM EST Office Visit [facility] [address] [place] [address] [phone] Usha Walls MD [address] [place] [address] [phone] documented as of this encounter Procedures Procedure Name Priority Date/Time Associated Diagnosis Comments HM PAP/HPV Routine 08/22/2020 documented in this encounter Results * Hm Pap Smear (08/22/2020) Historical Provider HEALTH MAINTENANCE Final Result documented in this encounter Visit Diagnoses Not on filedocumented in this encounter Care Teams Department Helper Relationship Specialty Start Date End Date Usha Walls MD [address] [place] [address] PCP - General Family Medicine 12/31/17 documented as of this encounter
--- OUTSIDE RECORDS SUMMARY | 2025-02-19 16:22 | XMS_ITS | Encounter Summary ---
Author Organization [employer] Address 75 [facility] 7t [place] [address] Care Team Providers Care Wine Consultant Name Role Phone Usha Walls MD Primary Care Provide r Reason for Visit * Reason Onset Date Comments apr recall 02/19/2025 Encounter Details Date Type Department Care Team ([facility] st Contact Info) Description 02/19/[address] [facility] [address] [place], [place] [phone] Usha Walls MD 230 [place], [place] [phone] apr recall Social History Tobacco Use Types Packs/Day Years [...] encounter Miscellaneous Notes * Telephone Encounter - Lisa Gonzalez MA - 02/19/2025 10:43 AM EDT Telephone call to patient to schedule the following recall: Visit type: Office visit Appointment notes: back pain Patient agree to appointment on 05/07/25 at 3:30 PM with Gala. documented in this encounter Plan of Treatment Upcoming Encounters Date Type Department Care Team (Late st Contact Info) Description 05/07/2025 3:30 PM EST Office Visit [facility] [address] [place] [phone] Usha Walls MD [address] [place] [address] documented as of this encounter Visit Diagnoses Not on filedocumented in this encounter Additional Health Concerns Assessment Noted Time PHQ-9 Depression Total Score: 7 10/28/19 24 1:51 PM EDT documented as of this encounter Care Teams Wine Consultant Relationship Specialty Start Date End Date Usha Walls MD [address] [place] [phone] PCP - General Family Medicine 12/31/17 documented as of this encounter
--- OUTSIDE RECORDS SUMMARY | 2025-02-19 16:22 | XMS_ITS | Encounter Summary ---
Author Organization [employer] Address 75 [facility] 7t [place] [address] Care Team Providers Care Non Licensed Nuclear Equipment Operator Name Role Phone Usha Walls MD Primary Care Provide r Reason for Visit * Reason Onset Date Comments Med Refill 12/19/2022 Encounter Details Date Type Department Care Team ([facility] st Contact Info) Description 12/19/2022 Telephone [facility] 230 [place], [place] [phone] Usha Walls MD 230 [place], [place] [phone] Med Refill Social History Tobacco Use Types [...] 3:11 PM EDT Medication was sent to [facility] on 11/22/22 #90 with 3 refills. * Telephone Encounter - Amira Matias - 12/19/2022 3:01 PM EDT Tc from pt requesting medication refill on Vitamin D High Potency 25 MCG (1000 UT) capsule documented in this encounter Plan of Treatment Upcoming Encounters Date Type Department Care Team (Late st Contact Info) Description 05/07/2025 3:30 PM EST Office Visit [facility] [address] [place], [place] [phone] Usha Walls MD [address] [place], [place] [phone] documented as of this encounter Visit Diagnoses Not on filedocumented in this encounter Care Teams Non Licensed Nuclear Equipment Operator Relationship Specialty Start Date End Date Usha Walls MD [address] [place] [phone] PCP - General Family Medicine 12/31/17 documented as of this encounter
--- OUTSIDE RECORDS SUMMARY | 2025-02-19 16:22 | XMS_ITS | Encounter Summary ---
Author Organization [employer] Address 75 [facility] 7t [place] [address] Care Team Providers Care Medical Laboratory Technologist Name Role Phone Usha Walls MD Primary Care Provide r Reason for Visit * Reason Onset Date Comments Letter for School/Work 06/08/2022 Encounter Details Date Type Department Care Team ([facility] st Contact Info) Description 06/08/2022 Telephone [facility] [address] [place] [address] Usha Walls MD [address] [place] [address] Letter for School/Work Social History Tobacco Use [...] numbness in hands Please contact pt at [phone] documented in this encounter Plan of Treatment Upcoming Encounters Date Type Department Care Team (Late st Contact Info) Description 05/07/2025 3:30 PM EST Office Visit [facility] [address] [place] [address] Usha Walls MD [address] [place], [place] [phone] documented as of this encounter Visit Diagnoses Not on filedocumented in this encounter Care Teams Medical Laboratory Technologist Relationship Specialty Start Date End Date Usha Walls MD [address] [place] [phone] PCP - General Family Medicine 12/31/17 documented as of this encounter
--- OUTSIDE RECORDS SUMMARY | 2025-02-19 16:22 | XMS_ITS | Encounter Summary ---
Author Organization [employer] Address 75 [facility] 7t [place] [address] Care Team Providers Care Pet Sitting Name Role Phone Usha Walls MD Primary Care Provide r Encounter Details Date Type Department Care Team ([facility] Contact Info) Description 11/22/2022 Orders Only [facility] [address] [place], [place] [phone] Darleen Adhikari LPN Social History Tobacco Use [...] Description 05/07/2025 3:30 PM EST Office Visit [facility] [address] [place] [address] Usha Walls MD 230 [place], [place] [phone] documented as of this encounter Visit Diagnoses Not on filedocumented in this encounter Care Teams Pet Sitting Relationship Specialty Start Date End Date Usha Walls MD [address] [place] [address] [phone] PCP - General Family Medicine 12/31/17 documented as of this encounter
--- OUTSIDE RECORDS SUMMARY | 2025-02-19 16:22 | XMS_ITS | Encounter Summary ---
Author Organization [employer] Address [address] [facility] [address] [place] [address] Care Team Providers Care Rn Cardiac Cath Name Role Phone Usha Walls MD Primary Care Provide r Reason for Visit * Reason Onset Date Comments Nurse Triage 02/18/2025 Encounter Details Date Type Department Care Team ([facility] st Contact Info) Description 02/18/2025 Telephone [facility] [address] [place], [place] [phone] Usha Walls MD [address] [place], [place] [phone] Nurse Triage Social History Tobacco Use Types Packs/Day Years [...] encounter Miscellaneous Notes * Telephone Encounter - Zulema Box RN - 02/18/2025 11:56 AM EDT T/C to pt via [facility] #[id number]. Pt c/o 12/06 constant low back pain radiating to herleft leg. Denies injury, loss of control of bowel/bladder, numbness/tingling of lower extremities. Reports that she has had this pain for a long time and completed an MRI four months ago. She was advised that her pain is related to a disc and her nerves. Reports that she saw [facility] twice and received and injection for pain that was supposed to last 6 months. Reports injection ineffective. Pt states that she is taking Aleve 220 mg BID which is not helping her pain. Recommended that pt come to [facility] for evaluation. Pt reports agreement with plan. Protocol Used: Back Pain (Adult) Protocol-Based Disposition: See in Office or Video Visit Today Video visit not offered Positive Triage Question: * Severe back pain (e.g., excruciating, unable to do any normal activities) and not improved after pain medicine and Care Advice * All higher-acuity triage questions were negative Care Advice Discussed: * Reasons To Call Back - Numbness or weakness occurs - Loss of control of your bladder or bowel - You become worse * Telephone Encounter - Safia Wayne - 02/18/2025 11:23 AM EDT Symptom: Back Pain - Not From Injury Outcome: Schedule an appointment to be seen within 3 days Reason: Caller denied all higher acuity questions The caller accepted this outcome. Pt stating her medication for the back is not working Contac pt at [phone] Need senior adults director documented in this encounter Plan of Treatment Upcoming Encounters Date Type Department Care Team (Late st Contact Info) Description 05/07/2025 3:30 PM EST Office Visit [facility] [address] [place] [address] [phone] Usha Walls MD [address] [place] [phone] documented as of this encounter Visit Diagnoses Not on filedocumented in this encounter Additional Health Concerns Assessment Noted Time PHQ-9 Depression Total Score: 7 10/28/19 24 1:51 PM EDT documented as of this encounter Care Teams Rn Cardiac Cath Relationship Specialty Start Date End Date Usha Walls MD [address] [place] [address] [phone] PCP - General Family Medicine 12/31/17 documented as of this encounter
--- OUTSIDE RECORDS SUMMARY | 2025-02-19 16:22 | XMS_ITS | Encounter Summary ---
Author Organization [employer] Address [address] [place] [address] Care Team Providers Care Nurse Anesthesia Program Director Name Role Phone Usha Walls MD Primary Care Provide r Reason for Visit * Reason Onset Date Comments Med Refill 01/28/2024 Encounter Details Date Type Department Care Team ([facility] st Contact Info) Description 01/28/2024 Refill [facility] [address] [place] [address] Usha Walls MD [address] [place], [place] [phone] Social History Tobacco Use Types Packs/Day Years [...] Description 05/07/2025 3:30 PM EST Office Visit [facility] [address] [place] [phone] Usha Walls MD [address] [place] [address] documented as of this encounter Visit Diagnoses Not on filedocumented in this encounter Additional Health Concerns Assessment Noted Time PHQ-9 Depression Total Score: 7 10/28/19 24 1:51 PM EDT documented as of this encounter Care Teams Nurse Anesthesia Program Director Relationship Specialty Start Date End Date Usha Walls MD [address] [place] [phone] PCP - General Family Medicine 12/31/17 documented as of this encounter
--- OUTSIDE RECORDS SUMMARY | 2025-02-19 16:22 | XMS_ITS | Encounter Summary ---
Author Organization [employer] Address [address] [facility] [address] [place] [address] Care Team Providers Care Gastroenterology Physician Name Role Phone Usha Walls MD Primary Care Provide r Reason for Visit * Reason Onset Date Comments triage 05/24/2022 Encounter Details Date Type Department Care Team ([facility] st Contact Info) Description 05/24/2022 Telephone [facility] [address] [place], [place] [phone] Usha Walls MD [address] [place], [place] [phone] triage Social History Tobacco Use Types Packs/Day [...] No answer LVM to return call to [facility] triage line. * Telephone Encounter - [...] Description 05/07/2025 3:30 PM EST Office Visit [facility] [address] [place], [place] [phone] Usha Walls MD [address] [place], [place] [phone] documented as of this encounter Visit Diagnoses Not on filedocumented in this encounter Care Teams Gastroenterology Physician Relationship Specialty Start Date End Date Usha Walls MD [address] [place] [phone] PCP - General Family Medicine 12/31/17 documented as of this encounter
[2025-02-23 09:29] LABS: Rubeola IgG (Measles) 18.30 AU/mL
== END 2025-02-19 14:29 | disposition home or self-care (01) ==
LOC: HO.HHCL 14:28
PROVIDERS: PCP Internal Medicine; Visit Provider Internal Medicine
DX: Z00.00 Encounter for general adult medical examination without abnormal findings (principal); Z01.84 Encounter for antibody response examination
CPT/HCPCS: 36415; 86735; 86762; 86765